=== PATIENT | male | born 1990 | race Two or more races ===

== ENCOUNTER 2023-02-08 10:36 | Inpatient (IN) | payer MEDICAID, SELFPAY ==
--- NOTE | 2023-02-08 10:55 | ED_ITS ---
HPI - General Adult General Chief complaint: Psychiatric Symptoms Stated complaint: SEC 12, HI, SI per EMS Time Seen by Provider: 02/08/23 10:55 Source: patient and EMS Mode of arrival: EMS Limitations: no limitations History of Present Illness HPI narrative: Patient is a 33 year old assigned male at with no reported medical history presenting to the emergency department today with suicidal ideation. Patient states that he has been feeling suicidal lately and when next to the [facility], he was really contemplating it. Patient denies any dizziness, lightheadedness, abdominal pain, nausea, vomiting, fever, chills, blurry vision, double vision, loss of vision, chest pain, difficulty breathing, shortness of breath, back pain, night sweats, pain with urination, increased urinary frequency, increased urinary urgency, blood in his urine or stool, syncope or a near syncopal episode, recent trauma or falls, bowel incontinence, bladder incontinence, bowel retention, bladder retention, or any other complaints at this time. Onset (ago): day(s) Relieving factors: none Exacerbating factors: none Associated symptoms: denies other symptoms Treatments prior to arrival: none Related Data Allergies Allergy/AdvReac Type Severity Reaction Status Date / Time seafood Allergy Hives Verified 02/08/23 12:13 Review of Systems Constitutional: Constitutional: Reports no additional constitutional complaints, Denies chills, Denies fever(s) and Denies night sweats Eyes: Eyes: Reports no additional eye complaints, Denies blurry vision, Denies change in vision, Denies diplopia, Denies eye discharge, Denies loss of vision and Denies eye pain ENT: Denies dizziness Cardiovascular: Cardiovascular: Reports no additional cardiovascular complaints, Denies chest pain, Denies lightheadedness, Denies Loss of Consciousness and Denies dyspnea Respiratory: Respiratory: Reports no additional respiratory complaints and Denies dyspnea Gastrointestinal: Gastrointestinal: Reports no additional gastrointestinal complaints, Denies abdominal pain, Denies melena, Denies hematochezia, Denies ch sonam in bowel habits and Denies change in stool character Genitourinary: Genitourinary: Reports no additional male genitourinary complaints, Denies hematuria, Denies oliguria, Denies difficulty urinating, Denies dysuria, Denies urinary frequency, Denies urinary hesitancy, Denies urinary incontinence and Denies urinary urgency Musculoskeletal: Musculoskeletal: Reports no additional musculoskeletal complaints, Denies numbness and Denies tingling Neurologic: Denies dizziness, Denies loss of vision, Denies numbness and Denies tingling Psychiatric: Psychiatric: Reports no additional psychiatric complaints and Reports suicidal ideation Endocrine: Endocrine: Reports no additional endocrine complaints Hematologic/Lymphatic: Hematologic/Lymphatic: Reports no additional hematologic/lymphatic complaints Allergic/Immunologic: Allergic/Immunologic: Reports no additional allergic/immunologic complaints [facility] Past Medical History Attestation statement: The following information was validated with the patient. Source: old records reviewed and nursing notes reviewed Social History Social History Advance Directives: No Physical Exam ED Vital Signs: Vital Signs - 24 hr 02/08/23 11:27 Temperature 98.6 F Pulse Rate 60 Respiratory Rate 16 Blood Pressure 123/67 Pulse Oximetry 97 Oxygen Delivery Method Room Air BMI result Body Mass Index 19.9 Const General: cooperative, no acute distress, alert and awake Nutritional Appearance: well nourished Orientation/consciousness: patient oriented x3 Limitations: no limitations HENMT Head: Yes normal to inspection and Yes atraumatic Ears: hearing grossly normal bilaterally and external ears normal General nose exam: Normal external nose present, no nasal discharge noted and no epistaxis Face and sinus: Yes normal facial exam, No abrasion and No laceration Mouth: Normal oral and palatal mucosa present, no drooling and no muffled voice Eyes General: appearance normal, both eyes and all related structures Periorbital: periorbital findings normal Eyelids: Yes eyelids normal Conjunctivae: conjunctivae normal Pupils: Equal, round and reactive pupils present EOM: EOMs intact bilaterally Neck Neck: Yes normal visual inspection, Yes full ROM and Yes no lymphadenopathy Chest Chest palpation & inspection: normal inspection of the chest Resp Effort & Inspection: normal respiratory effort and able to speak in complete sentences GI Inspection: Yes normal to inspection Neuro General: patient oriented x3 and moves all extremities Cranial nerves: Yes Equal, round and reactive pupils present Cognition (Neuro): normal cognition Motor exam (neuro): 5/5 motor strength present throughout Sensory Exam: Normal double simultaneous stimulation for sensation Coordination: [id number] test normal Extrem General: Yes normal to inspection, Yes full ROM and Yes capillary refill normal Psych Appearance: grossly normal Mental Status: mental status grossly normal Affect: normal affect Attitude: cooperative Thought process: Normal thought process present Thought content: Suicidality present Medications Administered Discontinued Medications Generic Name Dose Route Start Last Admin Trade Name Nancy PRN Reason Stop Dose Admin Ibuprofen 600 mg 02/08/23 11:30 02/08/23 12:16 Ibuprofen 600 Mg Tablet PO 02/08/23 11:31 600 mg ONCE STA Administration Medical Decision Making Medical Decision Making [facility] Narrative: Patient is a 33 year old assigned male at with no reported medical history presenting to the emergency department today with suicidal ideation. Patient's physical exam was unremarkable. Patient's blood work was unremarkable. I explained my physical exam findings as well as all test results to the patient. I answered all questions asked by the patient. Patient is a bed search from the community. Lab Data [facility] Lab Attestation statement: I reviewed the patient's lab results. 02/08/23 11:44 02/08/23 11:44 Labs: Lab Results 02/08/23 02/08/23 02/08/23 Range/Units 11:44 11:44 11:44 WBC 11.1 H (4.8-10.8) X10*3/uL RBC 4.30 L (4.60-5.80) X10*6/uL Hgb 13.8 L (14.0-18.0) g/dl Hct 40.2 L (42.0-52.0) % MCV 93.5 (80.0-98.0) fL MCH 32.1 (27.0-33.0) pg MCHC 34.3 (31.0-36.0) g/dl RDW 14.0 (11.0-16.0) % Plt Count 232 (160-400) X10*3/uL MPV 10.9 (9.4-12.4) fL Immature Gran % (Auto) 0.2 (0.0-0.4) % Neut % (Auto) 80.4 H (45-73) % Lymph % (Auto) 14.0 L (20-40) % [place] % (Auto) 4.8 (2-11) % Eos % (Auto) 0.1 (0-4) % Baso % (Auto) 0.5 (0-2) % Lymph # (Auto) 1.6 (1.2-4.9) X10*3/uL [place] # (Auto) 0.5 (0.1-1.2) X10*3/uL Eos # (Auto) 0.0 (0.0-0.4) X10*3/uL Baso # (Auto) 0.1 (0.0-0.2) X10*3/uL Abs Immat Gran (auto) 0.02 (0.00-0.03) X10*3/uL Absolute Neuts (auto) 8.9 H (2.0-8.3) x10*3/uL Absolute Nucleated RBC 0.000 (0.0-0.012) X10*3/uL Nucleated RBC % (auto) 0.0 (0.0-0.2) /100WBC Sodium 142 (135-145) mmol/L Potassium 3.9 (3.3-5.1) mmol/L Chloride 106 (96-108) mmol/L Carbon Dioxide 28 (22-29) mmol/L Anion Gap 12 (12-20) BUN 10 (9-16) mg/dL Creatinine 0.83 (0.5-1.4) mg/dL Estim Creat Clear Calc 108.6 Estimated GFR > 60 Random Glucose 101 (60-115) mg/dL Calcium 9.5 (8.4-10.2) mg/dL Total Bilirubin 0.9 (0.0-1.0) mg/dL AST 24 (5-37) U/L ALT 18 (0-40) U/L Alkaline Phosphatase 70 (39-117) U/L Total Protein 7.1 (6.5-8.0) g/dL Albumin 4.7 (3.5-5.0) g/dL Urine Color Dark Yellow Urine Appearance Clear Urine pH 5.5 (5.0-9.0) Ur Specific [place] 1.025 (1.005-1.025) Urine Protein 30 (1+) H (Neg-Trace) mg/dL Urine Glucose (UA) Negative (Negative) mg/dL Urine Ketones 40 (Negative) mg/dL Urine Blood Negative (Negative) Urine Nitrite Negative (Negative) Ur Leukocyte Esterase Negative (Negative) Urine RBC 0-2 (0-2) /HPF Urine WBC 0-5 (0-5) /HPF Ur Squamous Epith Cells 0-2 (0-2) /HPF Urine Bacteria None Seen (None Seen) Hyaline Casts 0-2 (0-2) /LPF Salicylates < 5.0 L (15-30) mg/dL Urine Opiates Screen (Not Detect) Urine Fentanyl Screen (Not Detect) Acetaminophen < 17 (<30) mcg/mL Ur Barbiturates Screen (Not Detect) Ur Phencyclidine Scrn (Not Detect) Ur Amphetamines Screen (Not Detect) U Benzodiazepines Scrn (Not Detect) Urine Cocaine Screen (Not Detect) U Marijuana (THC) Screen (Not Detect) Ethyl Alcohol < 10 mg/dL 02/08/23 Range/Units 11:44 WBC (4.8-10.8) X10*3/uL RBC (4.60-5.80) X10*6/uL Hgb (14.0-18.0) g/dl Hct (42.0-52.0) % MCV (80.0-98.0) fL MCH (27.0-33.0) pg MCHC (31.0-36.0) g/dl RDW (11.0-16.0) % Plt Count (160-400) X10*3/uL MPV (9.4-12.4) fL Immature Gran % (Auto) (0.0-0.4) % Neut % (Auto) (45-73) % Lymph % (Auto) (20-40) % [place] % (Auto) (2-11) % Eos % (Auto) (0-4) % Baso % (Auto) (0-2) % Lymph # (Auto) (1.2-4.9) X10*3/uL [place] # (Auto) (0.1-1.2) X10*3/uL Eos # (Auto) (0.0-0.4) X10*3/uL Baso # (Auto) (0.0-0.2) X10*3/uL Abs Immat Gran (auto) (0.00-0.03) X10*3/uL Absolute Neuts (auto) (2.0-8.3) x10*3/uL Absolute Nucleated RBC (0.0-0.012) X10*3/uL Nucleated RBC % (auto) (0.0-0.2) /100WBC Sodium (135-145) mmol/L Potassium (3.3-5.1) mmol/L Chloride (96-108) mmol/L Carbon Dioxide (22-29) mmol/L Anion Gap (12-20) BUN (9-16) mg/dL Creatinine (0.5-1.4) mg/dL Estim Creat Clear Calc Estimated GFR Random Glucose (60-115) mg/dL Calcium (8.4-10.2) mg/dL Total Bilirubin (0.0-1.0) mg/dL AST (5-37) U/L ALT (0-40) U/L Alkaline Phosphatase (39-117) U/L Total Protein (6.5-8.0) g/dL Albumin (3.5-5.0) g/dL Urine Color Urine Appearance Urine pH (5.0-9.0) Ur Specific [place] (1.005-1.025) Urine Protein (Neg-Trace) mg/dL Urine Glucose (UA) (Negative) mg/dL Urine Ketones (Negative) mg/dL Urine Blood (Negative) Urine Nitrite (Negative) Ur Leukocyte Esterase (Negative) Urine RBC (0-2) /HPF Urine WBC (0-5) /HPF Ur Squamous Epith Cells (0-2) /HPF Urine Bacteria (None Seen) Hyaline Casts (0-2) /LPF Salicylates (15-30) mg/dL Urine Opiates Screen Not Detected (Not Detect) Urine Fentanyl Screen Not Detected (Not Detect) Acetaminophen (<30) mcg/mL Ur Barbiturates Screen Not Detected (Not Detect) Ur Phencyclidine Scrn Not Detected (Not Detect) Ur Amphetamines Screen Not Detected (Not Detect) U Benzodiazepines Scrn Not Detected (Not Detect) Urine Cocaine Screen POSITIVE H (Not Detect) U Marijuana (THC) Screen POSITIVE H (Not Detect) Ethyl Alcohol mg/dL Independent Historian Clinical information obtained from an independent historian. History obtained from or confirmed by: EMS Discharge Plan Discharge Clinical Impression: Suicidal ideation Patient Disposition: Still a Patient
--- NOTE | 2023-02-08 11:12 | MHC.CARE ---
Patient evaluated in the community by [facility] Crisis and is awaiting inpatient psychiatric placement.
[2023-02-08 11:27] VITALS: BP 123/67; BP 140/76; PULSE 60; PULSE 70; RESP 16; TEMP 37; O2SAT 100; O2SAT 97; BMI 19.9
[2023-02-08 11:52] LABS: MANUAL DIFF FLAG NO
[2023-02-08 11:55] LABS: Basophils Absolute Auto 0.1 X10*3/uL (0.0-0.2); Basophils Percent Auto 0.5 % (0-2); Eosinophils Percent Auto 0.1 % (0-4); Hematocrit 40.2 % (42.0-52.0); Hemoglobin 13.8 g/dl (14.0-18.0); Imm Gran Abs Auto 0.02 X10*3/uL (0.00-0.03); Imm Gran Pct Auto 0.2 % (0.0-0.4); Lymphocytes Absolute Auto 1.6 X10*3/uL (1.2-4.9); Mean Corpuscular HGB Conc 34.3 g/dl (31.0-36.0); Mean Corpuscular Hemoglobin 32.1 pg (27.0-33.0); Mean Corpuscular Volume 93.5 fL (80.0-98.0); Mean Platelet Volume 10.9 fL (9.4-12.4); Monocytes Absolute Auto 0.5 X10*3/uL (0.1-1.2); Monocytes Percent Auto 4.8 % (2-11); Neutrophils Absolute Auto 8.9 x10*3/uL (2.0-8.3); Neutrophils Percent Auto 80.4 % (45-73); Platelet Count 232 X10*3/uL (160-400); White Blood Count 11.1 X10*3/uL (4.8-10.8)
[2023-02-08 11:59] LABS: Appearance Urine Clear; Color Urine Dark Yellow; Glucose Urine UA Negative (Negative); Leukocyte Esterase Urine Negative (Negative); Nitrite Urine Negative (Negative); PH 5.5 (5.0-9.0); Specific Gravity - Urine 1.025 (1.005-1.025); UMIC TRIGGER UA YES; Urine Blood Negative (Negative); Urine Ketones 40 mg/dL (Negative); Urine Protein 30 (1+) mg/dL (Neg-Trace)
[2023-02-08 12:06] LABS: Bacteria Urine None Seen (None Seen); Hyaline Casts Urine 0-2 /LPF (0-2); RBC Urine 0-2 /HPF (0-2); Squamous Epithelial Cell Urine 0-2 /HPF (0-2); WBC Urine 0-5 /HPF (0-5)
[2023-02-08 12:08] LABS: Amphetamine Screen Urine Not Detected (Not Detect); Barbiturates, Urine Not Detected (Not Detect); Benzodiazepines Screen Urine Not Detected (Not Detect); Cannabinoid Screen Urine POSITIVE (Not Detect); Cocaine Screen Urine POSITIVE (Not Detect); Fentanyl, urine Not Detected (Not Detect); Opiate Screen Urine Not Detected (Not Detect); Phencyclidine Screen Urine Not Detected (Not Detect)
[2023-02-08 12:15] LABS: Acetaminophen LAB < 17 mcg/mL (<30); Alanine Aminotransferase 18 U/L (0-40); Albumin Level 4.7 g/dL (3.5-5.0); Alkaline Phosphatase 70 U/L (39-117); Anion Gap 12 (12-20); Aspartate Amino Transferase 24 U/L (5-37); Bilirubin Total 0.9 mg/dL (0.0-1.0); Blood Urea Nitrogen 10 mg/dL (9-16); Calcium 9.5 mg/dL (8.4-10.2); Carbon Dioxide 28 mmol/L (22-29); Chloride 106 mmol/L (96-108); Creatinine Clr Calc Pharmacy 108.6; Estimated Glomerular Filt Rate > 60; Ethanol < 10 mg/dL; Glucose Random 101 mg/dL (60-115); Potassium 3.9 mmol/L (3.3-5.1); Salicylate < 5.0 mg/dL (15-30); Sodium 142 mmol/L (135-145); Total Protein 7.1 g/dL (6.5-8.0)
[2023-02-08] MEDS: Ibuprofen 600 MG TABLET PO (12:16)
--- NOTE | 2023-02-08 12:56 | ECG_ITS ---
Test Reason : CHECK QT Blood Pressure : / mmHG Vent. Rate : 063 BPM Atrial Rate : 063 BPM P-R Int : 128 ms QRS Dur : 096 ms QT Int : 404 ms P-R-T Axes : 080 069 049 degrees QTc Int : 413 ms Normal sinus rhythm Normal ECG No previous ECGs available Referred By: Star Ramirez Electronically Signed By:TEMITOPE CABRERA MD
--- NOTE | 2023-02-08 14:21 | PC.NURSE ---
Pt calm, showered, ate lunch, up ad kylie. Communicates well with staff and peers. Has pervasive negative thoughts. Has recently lost Mother and family members in the last couple of months. Denies SI/HI at this time. Feels safe in this environment. Reports cocaine and ETOH use recently, consistently with no s/s of withdrawals.
[2023-02-08 19:45] LABS: COVID-19 Test Negative (Negative); IDNOW Serial# 08D9AD1C
[2023-02-08 20:26] VITALS: BP 103/72; PULSE 80; RESP 16; TEMP 36.7; O2SAT 99
[2023-02-09 03:15] VITALS: BP 110/74; PULSE 74; RESP 16; TEMP 36.8; O2SAT 98
--- NOTE | 2023-02-09 06:31 | PC.NURSE ---
Patient slept through the night, no distress observed/reported, med rec completed/patient is currently not on any home medication, disposition per [facility] is section 12 inpatient bed search, VSS, no behavior concern, will continue to monitor.
--- NOTE | 2023-02-09 07:38 | PC.NURSE ---
Breakfest tray provided, pt continues to appear to be sleeping. Resp reg and even, NAD. In patient bedsearch continues. Awaiting to hear from CARE team for any changes in dispo.
[2023-02-09 09:46] VITALS: BP 114/79; PULSE 92; RESP 16; TEMP 36.5; O2SAT 97
[2023-02-09] MEDS: Ibuprofen 600 MG TABLET PO (13:22)
[2023-02-09] MEDS: Acetaminophen 325 MG TABLET 650 MG PO ×2 (15:09→20:36)
--- NOTE | 2023-02-09 15:15 | PC.NURSE ---
medicated for dental pain.
[2023-02-09 17:57] VITALS: BP 124/71; PULSE 67; RESP 17; TEMP 36.7; O2SAT 97
--- NOTE | 2023-02-09 18:22 | PC.ADMIT ---
Anthony was admitted to [facility] at 16:30 from Pod on a CV for treatment of SI/HI/AH/Depression.? Precipitants of admission include self presenting [facility] outpatient tx center and reported that he was wanting to hurt others and himself, ?I have so much anger in me that it?s driving me crazy?. He is alert and oriented x4. Mood is depressed with a variable affect. He reports command AH telling him to harm others. ?The voices will just tell me things to do to people around me. The plan is never the same. It is what it is at that moment. ANd the thoughts are so intrusive most of the time?. Reports that the thoughts of harming others are there very frequently. Reported he is able to seek staff out if these thoughts occur. Denies VH at this time. Reports SI with plan to jump off bridge. Reported to have walked to the bridge and thought about jumping but stopped because ?my daughter needs me more than I need myself?. Patient stated that ?my depression is so bad I have no energy except to drink and pass out then start over?. Pt endorsed anxiety and believes he has ADHD. ?I think I have ADHD. My mind never stops. Whether it is emotional, intrusive thoughts and I can not focus?. Thought Process linear and clear. Appetite has been poor ?I Haven?t had?. Sleep is poor. ?I Only sleep when I'm fully intoxicated and drunk?. PATTERSON is positive for cocaine. Coke is used 2 to 3 times a week. Last use 02/08 @0100. Reported to drink ?a Gallon of ronel a day for a very long time?? last drink on 02/08/2023 @ 0100. Patient denies any seizure hx. Started on CIWA q4 hours with PRN ativan based on CIWA score. Reported tooth ache on the left lower side rates it a 7/10 in pain. HX of asthma. 15 minute safety checks initiated.
[2023-02-09] MEDS: Thiamine HCL 100 MG TABLET PO (18:26)
[2023-02-09] MEDS: LORazepam 1 MG TABLET PO (18:26)
[2023-02-09 21:30] VITALS: BP 127/76; PULSE 76; RESP 18; TEMP 36.4; O2SAT 97
[2023-02-09] MEDS: traZODone HCL 50 MG TABLET PO (21:43)
[2023-02-09] MEDS: Benzocaine 20 % Oral Gel 9 GM TUBE 1 APPL MUCOUS MEM (21:43)
[2023-02-10] MEDS: hydrOXYzine HCL 25 MG TABLET PO (00:18)
[2023-02-10 08:00] VITALS: BP 108/58; PULSE 61; TEMP 36.6; O2SAT 99
[2023-02-10] MEDS: Thiamine HCL 100 MG TABLET PO (08:24)
[2023-02-10] MEDS: Ibuprofen 600 MG TABLET PO ×3 (08:27→20:18)
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
[2023-02-10 09:16] LABS: Alanine Aminotransferase 15 U/L (0-40); Albumin Level 4.2 g/dL (3.5-5.0); Alkaline Phosphatase 67 U/L (39-117); Anion Gap 12 (12-20); Aspartate Amino Transferase 15 U/L (5-37); Bilirubin Total 1.1 mg/dL (0.0-1.0); Blood Urea Nitrogen 13 mg/dL (9-16); Calcium 9.5 mg/dL (8.4-10.2); Carbon Dioxide 28 mmol/L (22-29); Chloride 105 mmol/L (96-108); Cholesterol 219 mg/dL; Estimated Glomerular Filt Rate > 60; Glucose Fasting 98 mg/dL (60-99); HDL Cholesterol 46 mg/dL; LDL Cholesterol Calculated 146 mg/dl; Potassium 4.4 mmol/L (3.3-5.1); Sodium 141 mmol/L (135-145); Total Protein 6.5 g/dL (6.5-8.0); Triglycerides 139 mg/dL
[2023-02-10] MEDS: HaloperidoL 1 MG TABLET 2 MG PO ×2 (13:29→20:19)
[2023-02-10 20:10] VITALS: BP 132/78; PULSE 16; RESP 16; TEMP 36.6; O2SAT 98
[2023-02-10] MEDS: traZODone HCL 100 MG TABLET PO (20:18)
[2023-02-10] MEDS: Acetaminophen 325 MG TABLET 650 MG PO (20:18)
[2023-02-10] MEDS: Benzocaine 20 % Oral Gel 9 GM TUBE 1 APPL MUCOUS MEM (20:19)
[2023-02-10] MEDS: Prazosin HCL 1 MG CAPSULE PO (20:19)
--- NOTE | 2023-02-11 01:00 | PC.NURSE ---
CIWA-ordered to perform when awake. patient is asleep. respirations even and unlabored. no signs of distress.
[2023-02-11] MEDS: Acetaminophen 325 MG TABLET 650 MG PO ×2 (02:55→12:59)
[2023-02-11] MEDS: traZODone HCL 100 MG TABLET PO ×2 (02:55→20:22)
[2023-02-11 08:00] VITALS: BP 111/60; PULSE 64; RESP 18; TEMP 36.6; O2SAT 96
[2023-02-11] MEDS: Thiamine HCL 100 MG TABLET PO (08:40)
[2023-02-11] MEDS: Ibuprofen 600 MG TABLET PO ×3 (08:40→20:22)
[2023-02-11] MEDS: HaloperidoL 1 MG TABLET 2 MG PO ×2 (12:59→20:21)
[2023-02-11] MEDS: Nicotine Polacrilex 2 MG GUM 4 MG BUCCAL (14:15)
--- NOTE | 2023-02-11 16:31 | HO.PSYCHPN ---
Subjective Subjective Date of Service: 02/11/23 Reason For Visit: SI Subjective Notes: Conditional Voluntary Medical Problems Affecting Mental Status: No Interim History: met with patient. Discussed with Nursing. Admitted with hallucinations suicidal ideation homicidal ideation. Today reports overall feeling much improved. Thankful for the care he has been receiving so far. Happy with medications. Reported now focusing on his own well-being and being present for his 15-year-old daughter. Reports this is the 1st time he has sought treatment and open to substance rehab programming with a view to residential programming thereafter. Otherwise mood good. Sleep energy and appetite okay. No medication concerns Side effects from medications: No Attending Groups: Yes Review of Systems Acute medical concerns: No Review of Systems Review of Systems Yes all other systems are reviewed and are negative Mental Status Exam Mental Status Exam Narrative: pleasant. Engaged. Organized. Good hygiene. Euthymic. No SI. No HI. No agitation. No psychosis. Insight and judgment good Diagnostics Vital Signs (24Hr): Vital Signs - 24 hr 02/10/23 20:10 02/11/23 08:00 Temperature 97.8 F 97.8 F Pulse Rate 16 L 64 Respiratory Rate 16 18 Blood Pressure 132/78 111/60 Pulse Oximetry 98 96 Oxygen Delivery Method Room Air Room Air BMI result Body Mass Index 19.9 Labs 02/08/23 11:44 02/10/23 08:25 Labs: Laboratory Results - last 48 hr 02/10/23 08:25 Sodium 141 Potassium 4.4 Chloride 105 Carbon Dioxide 28 Anion Gap 12 BUN 13 Creatinine 0.91 Estim Creat Clear Calc 99.0 Estimated GFR > 60 Fasting Glucose 98 Calcium 9.5 Total Bilirubin 1.1 H AST 15 ALT 15 Alkaline Phosphatase 67 Total Protein 6.5 Albumin 4.2 Triglycerides 139 Cholesterol 219 LDL Cholesterol, Calc 146 HDL Cholesterol 46 Medications Medications Current Medications Acetaminophen (Acetaminophen 325 Mg Tablet) 650 mg PO Q6H PRN PRN Reason: Headache/Pain Mild Scale (1-3) Last Admin: 02/11/23 12:59 Dose: 650 mg Al Hydroxide/Mg Hydroxide (Magnesium Hydrox/Alum Hydrox 30 Ml Oral.Susp) 30 ml PO Q6H PRN PRN Reason: Heartburn/Nausea Benzocaine (Benzocaine 20 % Oral Gel 9 Gm Tube) 1 appl MUCOUS MEM QID PRN; Protocol PRN Reason: toothache Last Admin: 02/10/23 20:19 Dose: 1 appl Haloperidol (Haloperidol 1 Mg Tablet) 2 mg PO Q4H PRN PRN Reason: agitation Last Admin: 02/11/23 12:59 Dose: 2 mg Hydroxyzine HCl (Hydroxyzine Hcl 25 Mg Tablet) 25 mg PO Q6H PRN PRN Reason: Anxiety Last Admin: 02/10/23 00:18 Dose: 25 mg Ibuprofen (Ibuprofen 600 Mg Tablet) 600 mg PO TID DENIA Last Admin: 02/11/23 14:30 Dose: 600 mg Lorazepam (Lorazepam 1 Mg Tablet) 1 mg PO Q4H PRN PRN Reason: Alcohol Withdrawal Lorazepam (Lorazepam 1 Mg Tablet) 2 mg PO Q4H PRN PRN Reason: Alcohol Withdrawal Magnesium Hydroxide (Milk Of Magnesia 30 Ml Oral.Susp) 30 ml PO DAILY PRN PRN Reason: Constipation Nicotine (Nicotine 21 Mg Patch.Td24) 21 mg TRANSDERMA DAILY DENIA Nicotine Polacrilex (Nicotine Polacrilex 2 Mg Gum) 4 mg BUCCAL Q2H PRN PRN Reason: nicotine cravings Last Admin: 02/11/23 14:15 Dose: 4 mg Nicotine Polacrilex (Nicotine Polacrilex 2 Mg Gum) 2 mg BUCCAL Q2H PRN PRN Reason: Nicotine Cravings Prazosin HCl (Prazosin Hcl 1 Mg Capsule) 2 mg PO BEDTIME DENIA; Protocol Stop: 02/11/23 21:01 Prazosin HCl (Prazosin Hcl 1 Mg Capsule) 3 mg PO BEDTIME DENIA; Protocol Thiamine HCl (Thiamine Hcl 100 Mg Tablet) 100 mg PO DAILY DENIA Last Admin: 02/11/23 08:40 Dose: 100 mg Trazodone HCl (Trazodone Hcl 100 Mg Tablet) 100 mg PO BEDTIME MRX1 DENIA Last Admin: 02/11/23 05:04 Dose: Not Given Allergies Allergies Allergy/AdvReac Type Severity Reaction Status Date / Time seafood Allergy Hives Verified 02/08/23 12:13 Assessment & Plan Assessment & Plan (1) Chronic post-traumatic stress disorder (PTSD): Status: Acute Code(s): F43.12 - Post-traumatic stress disorder, chronic (2) Major depressive disorder: Status: Acute Code(s): F32.9 - Major depressive disorder, single episode, unspecified Plan 02/10: start prazosin titration for nightmares and insomnia in PTSD. start haldol 2 mg Q4H PRN agitation/anger. titrate up as indicated. T/C SSRI, T/C naltrexone. 02/11/2023: No changes to current plan. Open to inpatient substance programming with a view to residential treatment programming there after Reason for contiued inpatient stay Substantial Risk for: harm to self Time Spent With Patient Time: Total time managing care of this patient today ____ minutes.
[2023-02-11] MEDS: Prazosin HCL 1 MG CAPSULE 2 MG PO (20:21)
[2023-02-11 20:25] VITALS: BP 107/71; PULSE 86; TEMP 36.6; O2SAT 97
[2023-02-12] MEDS: traZODone HCL 100 MG TABLET PO ×3 (02:00→22:00)
[2023-02-12] MEDS: Ibuprofen 600 MG TABLET PO ×3 (10:22→20:52)
[2023-02-12] MEDS: Thiamine HCL 100 MG TABLET PO (10:23)
[2023-02-12 12:30] VITALS: BP 119/75; PULSE 60; RESP 18; TEMP 36.6; O2SAT 100
[2023-02-12] MEDS: Nicotine 21 MG PATCH.TD24 TRANSDERMA (12:54)
[2023-02-12] MEDS: Acetaminophen 325 MG TABLET 650 MG PO (13:07)
[2023-02-12] MEDS: HaloperidoL 1 MG TABLET 2 MG PO ×2 (13:08→20:52)
--- NOTE | 2023-02-12 14:15 | HO.PSYCHPN ---
Subjective Subjective Date of Service: 02/12/23 Reason For Visit: SI Subjective Notes: Emery Warning and 3 Day Interim History: Continues to report overall things feeling things are much better. Adamantly denies depression, SI, HI, psychosis. Reports admitting three-day notice with a view to pursuing sober living environment and has a list of resources provided by the unit. Continues to feel thankful for the care he has received. Remains focused on his own well-being and being present for his 15-year-old daughter. Otherwise sleep energy and appetite good. No medication concerns. Medication Compliance: Yes Side effects from medications: No Attending Groups: Yes Review of Systems Acute medical concerns: No Review of Systems Review of Systems Yes all other systems are reviewed and are negative Mental Status Exam Mental Status Exam Narrative: pleasant. Engaged. Organized. Good hygiene. Euthymic. No SI. No HI. No agitation. No psychosis. Insight and judgment good Diagnostics Vital Signs (24Hr): Vital Signs - 24 hr 02/11/23 20:25 Temperature 97.8 F Pulse Rate 86 Blood Pressure 107/71 Pulse Oximetry 97 Oxygen Delivery Method Room Air BMI result Body Mass Index 19.9 Labs 02/08/23 11:44 02/10/23 08:25 Medications Medications Current Medications Acetaminophen (Acetaminophen 325 Mg Tablet) 650 mg PO Q6H PRN PRN Reason: Headache/Pain Mild Scale (1-3) Last Admin: 02/12/23 13:07 Dose: 650 mg Al Hydroxide/Mg Hydroxide (Magnesium Hydrox/Alum Hydrox 30 Ml Oral.Susp) 30 ml PO Q6H PRN PRN Reason: Heartburn/Nausea Benzocaine (Benzocaine 20 % Oral Gel 9 Gm Tube) 1 appl MUCOUS MEM QID PRN; Protocol PRN Reason: toothache Last Admin: 02/10/23 20:19 Dose: 1 appl Haloperidol (Haloperidol 1 Mg Tablet) 2 mg PO Q4H PRN PRN Reason: agitation Last Admin: 02/12/23 13:08 Dose: 2 mg Hydroxyzine HCl (Hydroxyzine Hcl 25 Mg Tablet) 25 mg PO Q6H PRN PRN Reason: Anxiety Last Admin: 02/10/23 00:18 Dose: 25 mg Ibuprofen (Ibuprofen 600 Mg Tablet) 600 mg PO TID DENIA Last Admin: 02/12/23 10:22 Dose: 600 mg Lorazepam (Lorazepam 1 Mg Tablet) 1 mg PO Q4H PRN PRN Reason: Alcohol Withdrawal Lorazepam (Lorazepam 1 Mg Tablet) 2 mg PO Q4H PRN PRN Reason: Alcohol Withdrawal Magnesium Hydroxide (Milk Of Magnesia 30 Ml Oral.Susp) 30 ml PO DAILY PRN PRN Reason: Constipation Nicotine (Nicotine 21 Mg Patch.Td24) 21 mg TRANSDERMA DAILY DENIA Last Admin: 02/12/23 12:54 Dose: 21 mg Nicotine Polacrilex (Nicotine Polacrilex 2 Mg Gum) 4 mg BUCCAL Q2H PRN PRN Reason: nicotine cravings Last Admin: 02/11/23 14:15 Dose: 4 mg Nicotine Polacrilex (Nicotine Polacrilex 2 Mg Gum) 2 mg BUCCAL Q2H PRN PRN Reason: Nicotine Cravings Prazosin HCl (Prazosin Hcl 1 Mg Capsule) 3 mg PO BEDTIME DENIA; Protocol Thiamine HCl (Thiamine Hcl 100 Mg Tablet) 100 mg PO DAILY DENIA Last Admin: 02/12/23 10:23 Dose: 100 mg Trazodone HCl (Trazodone Hcl 100 Mg Tablet) 100 mg PO BEDTIME MRX1 DENIA Last Admin: 02/12/23 02:00 Dose: 100 mg Allergies Allergies Allergy/AdvReac Type Severity Reaction Status Date / Time seafood Allergy Hives Verified 02/08/23 12:13 Assessment & Plan Assessment & Plan (1) Chronic post-traumatic stress disorder (PTSD): Status: Acute Code(s): F43.12 - Post-traumatic stress disorder, chronic (2) Major depressive disorder: Status: Acute Code(s): F32.9 - Major depressive disorder, single episode, unspecified Plan 02/10: start prazosin titration for nightmares and insomnia in PTSD. start haldol 2 mg Q4H PRN agitation/anger. titrate up as indicated. T/C SSRI, T/C naltrexone. 02/11/2023: No changes to current plan. Open to inpatient substance programming with a view to residential treatment programming there after 02/12/2023: Three-day notice Reason for contiued inpatient stay Substantial Risk for: harm to self Time Spent With Patient Time: Total time managing care of this patient today ____ minutes.
[2023-02-12] MEDS: hydrOXYzine HCL 25 MG TABLET PO (16:41)
[2023-02-12] MEDS: Benzocaine 20 % Oral Gel 9 GM TUBE 1 APPL MUCOUS MEM (16:41)
[2023-02-12 20:50] VITALS: BP 118/70; PULSE 70; RESP 18; TEMP 36.2; O2SAT 100
[2023-02-12] MEDS: Prazosin HCL 1 MG CAPSULE 3 MG PO (20:51)
[2023-02-13 08:30] VITALS: BP 121/62; PULSE 70; RESP 16; TEMP 36.6; O2SAT 100
[2023-02-13] MEDS: Ibuprofen 600 MG TABLET PO ×3 (08:43→21:55)
[2023-02-13] MEDS: Thiamine HCL 100 MG TABLET PO (08:43)
[2023-02-13] MEDS: Sertraline HCL 50 MG TABLET PO (14:53)
--- NOTE | 2023-02-13 15:00 | P.PNPSI_ITS ---
Subjective Subjective Date of Service: 02/13/23 Reason For Visit: SI Interim History: calm, cooperative. positive. states he doesn't want to hurt others, he wants to help himself and help others. feels this experience has led to a profound change in perspective. wants to stay way from drugs. denies intrusive thoughts of harming others. states sleeping better, but not well. had a nightmare last night. agrees to increase prazosin to 4 mg at HS. agreeable to start zoloft for depression and anxiety. asks to scheduled trazodone at HS to be 200 mg and to add seroquel 50, which is done. awaiting [facility] admission. per staff, social. meds and meals. eating and sleeping. wants aftercare outside [facility]. 3-day up wed. Mental Status Exam Mental Status Exam Narrative: pleasant. Engaged. Organized. Good hygiene. Euthymic. No SI. No HI. No agitation. No psychosis. Insight and judgment good Diagnostics Vital Signs (24Hr): Vital Signs - 24 hr 02/12/23 20:50 02/13/23 08:30 Temperature 97.2 F 97.8 F Pulse Rate 70 70 Respiratory Rate 18 16 Blood Pressure 118/70 121/62 Pulse Oximetry 100 100 Oxygen Delivery Method Room Air Room Air BMI result Body Mass Index 19.9 Labs 02/08/23 11:44 02/10/23 08:25 Medications Medications Current Medications Acetaminophen (Acetaminophen 325 Mg Tablet) 650 mg PO Q6H PRN PRN Reason: Headache/Pain Mild Scale (1-3) Last Admin: 02/12/23 13:07 Dose: 650 mg Al Hydroxide/Mg Hydroxide (Magnesium Hydrox/Alum Hydrox 30 Ml Oral.Susp) 30 ml PO Q6H PRN PRN Reason: Heartburn/Nausea Benzocaine (Benzocaine 20 % Oral Gel 9 Gm Tube) 1 appl MUCOUS MEM QID PRN; Protocol PRN Reason: toothache Last Admin: 02/12/23 16:41 Dose: 1 appl Haloperidol (Haloperidol 1 Mg Tablet) 2 mg PO Q4H PRN PRN Reason: agitation Last Admin: 02/12/23 20:52 Dose: 2 mg Hydroxyzine HCl (Hydroxyzine Hcl 25 Mg Tablet) 25 mg PO Q6H PRN PRN Reason: Anxiety Last Admin: 02/12/23 16:41 Dose: 25 mg Ibuprofen (Ibuprofen 600 Mg Tablet) 600 mg PO TID [facility] Last Admin: 02/13/23 14:31 Dose: 600 mg Lorazepam (Lorazepam 1 Mg Tablet) 1 mg PO Q4H PRN PRN Reason: Alcohol Withdrawal Lorazepam (Lorazepam 1 Mg Tablet) 2 mg PO Q4H PRN PRN Reason: Alcohol Withdrawal Magnesium Hydroxide (Milk Of Magnesia 30 Ml Oral.Susp) 30 ml PO DAILY PRN PRN Reason: Constipation Nicotine (Nicotine 21 Mg Patch.Td24) 21 mg TRANSDERMA DAILY [facility] Last Admin: 02/13/23 08:44 Dose: Not Given Nicotine Polacrilex (Nicotine Polacrilex 2 Mg Gum) 4 mg BUCCAL Q2H PRN PRN Reason: nicotine cravings Last Admin: 02/11/23 14:15 Dose: 4 mg Nicotine Polacrilex (Nicotine Polacrilex 2 Mg Gum) 2 mg BUCCAL Q2H PRN PRN Reason: Nicotine Cravings Prazosin HCl (Prazosin Hcl 1 Mg Capsule) 4 mg PO BEDTIME [facility]; Protocol Quetiapine Fumarate (Quetiapine Fumarate 50 Mg Tablet) 50 mg PO BEDTIME DENIA Sertraline HCl (Sertraline Hcl 50 Mg Tablet) 50 mg PO DAILY [facility] Last Admin: 02/13/23 14:53 Dose: 50 mg Thiamine HCl (Thiamine Hcl 100 Mg Tablet) 100 mg PO DAILY [facility] Last Admin: 02/13/23 08:43 Dose: 100 mg Trazodone HCl (Trazodone Hcl 100 Mg Tablet) 200 mg PO BEDTIME DENIA Allergies Allergies Allergy/AdvReac Type Severity Reaction Status Date / Time seafood Allergy Hives Verified 02/08/23 12:13 Assessment & Plan Assessment & Plan (1) Chronic post-traumatic stress disorder (PTSD): Status: Acute Code(s): F43.12 - Post-traumatic stress disorder, chronic (2) Major depressive disorder: Status: Acute Code(s): F32.9 - Major depressive disorder, single episode, unspecified Plan 02/10: start prazosin titration for nightmares and insomnia in PTSD. start haldol 2 mg Q4H PRN agitation/anger. titrate up as indicated. T/C SSRI, T/C naltrexone. 02/11: No changes to current plan. Open to inpatient substance programming with a view to residential treatment programming there after 02/12: Three-day notice. 02/13: start zoloft 50 daily, seroquel 50 QHS for sleep. schedule trazodone 200 at HS for sleep. increase prazosin to 4 for nightmares and insomnia - had a nightmare last night. c/o disrupted sleep as most concerning Sx. positive change in view, denies intrusive thoughts. planning to discharge to [facility]. Reason for contiued inpatient stay Substantial Risk for: inability to function and rapid decompensation Time Spent With Patient Time: Total time managing care of this patient today __25__ minutes.
[2023-02-13] MEDS: Nicotine 21 MG PATCH.TD24 TRANSDERMA (17:37)
[2023-02-13 21:54] VITALS: BP 119/64; PULSE 70; RESP 18; O2SAT 97
[2023-02-13] MEDS: traZODone HCL 100 MG TABLET 200 MG PO (21:55)
[2023-02-13] MEDS: Prazosin HCL 1 MG CAPSULE 4 MG PO (21:55)
[2023-02-13] MEDS: QUEtiapine Fumarate 50 MG TABLET PO (21:55)
[2023-02-14] MEDS: Thiamine HCL 100 MG TABLET PO (08:39)
[2023-02-14] MEDS: Ibuprofen 600 MG TABLET PO ×3 (08:39→20:50)
[2023-02-14] MEDS: Sertraline HCL 50 MG TABLET PO (08:39)
[2023-02-14 08:40] VITALS: BP 109/87; PULSE 92; RESP 18; TEMP 36.6; O2SAT 97
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
[2023-02-14] MEDS: Acetaminophen 325 MG TABLET 650 MG PO (13:37)
[2023-02-14] MEDS: HaloperidoL 1 MG TABLET 2 MG PO (17:48)
[2023-02-14] MEDS: QUEtiapine Fumarate 50 MG TABLET PO (20:50)
[2023-02-14] MEDS: Mirtazapine 30 MG TABLET PO (20:50)
[2023-02-14] MEDS: Prazosin HCL 1 MG CAPSULE 4 MG PO (20:50)
[2023-02-14 20:53] VITALS: BP 124/76; PULSE 78; TEMP 36.7; O2SAT 97
[2023-02-15] MEDS: hydrOXYzine HCL 25 MG TABLET PO (02:45)
[2023-02-15] MEDS: Thiamine HCL 100 MG TABLET PO (08:12)
[2023-02-15] MEDS: Ibuprofen 600 MG TABLET PO (08:12)
[2023-02-15] MEDS: Sertraline HCL 50 MG TABLET PO (08:13)
[2023-02-15 08:25] VITALS: BP 135/86; PULSE 110; O2SAT 97
== END 2023-02-15 08:45 | disposition home or self-care (01) | DRG 885 ==
LOC: HO.ED 02-09 07:20 → HO.PADLT16 02-09 15:07
PROVIDERS: Physician Assistant Medical; Social Worker; Admitting Provider Psychiatry & Neurology Psychiatry; Emergency Provider Emergency Medicine Emergency Medical Services; Visit Provider Psychiatry & Neurology Psychiatry
DX: F33.1 Major depressive disorder, recurrent, moderate (principal); R45.851 Suicidal ideations; F43.12 Post-traumatic stress disorder, chronic; F17.210 Nicotine dependence, cigarettes, uncomplicated; Z59.02 Unsheltered homelessness; Z71.6 Tobacco abuse counseling; Z79.899 Other long term (current) drug therapy
CPT/HCPCS: 36415; 80053; 80061; 80143; 80179; 80307; 81001; 81003; 82077; 85025; 87635; 93005; 99285; S9485

== ENCOUNTER 2023-02-16 20:30 | Emergency (ER) | payer MEDICAID, SELFPAY ==
[2023-02-16 20:44] VITALS: BP 137/79; PULSE 96; RESP 16; TEMP 37; O2SAT 95; BMI 22.9
[2023-02-16 21:13] LABS: Appearance Urine Clear; Color Urine Yellow; Glucose Urine UA Negative (Negative); Leukocyte Esterase Urine Negative (Negative); Nitrite Urine Negative (Negative); PH 7.5 (5.0-9.0); Specific Gravity - Urine 1.025 (1.005-1.025); Urine Blood Negative (Negative); Urine Ketones Trace mg/dL (Negative); Urine Protein Trace mg/dL (Neg-Trace)
[2023-02-16 21:24] LABS: COVID-19 Test Negative (Negative); IDNOW Serial# BCCEAD1C
[2023-02-16 21:43] LABS: Amphetamine Screen Urine Not Detected (Not Detect); Barbiturates, Urine Not Detected (Not Detect); Benzodiazepines Screen Urine Not Detected (Not Detect); Cannabinoid Screen Urine POSITIVE (Not Detect); Cocaine Screen Urine POSITIVE (Not Detect); Fentanyl, urine Not Detected (Not Detect); Opiate Screen Urine Not Detected (Not Detect); Phencyclidine Screen Urine Not Detected (Not Detect)
[2023-02-16 22:07] LABS: MANUAL DIFF FLAG NO
[2023-02-16 22:08] LABS: Basophils Absolute Auto 0.1 X10*3/uL (0.0-0.2); Basophils Percent Auto 0.7 % (0-2); Eosinophils Absolute Auto 0.1 X10*3/uL (0.0-0.4); Eosinophils Percent Auto 1.2 % (0-4); Hemoglobin 12.9 g/dl (14.0-18.0); Imm Gran Abs Auto 0.02 X10*3/uL (0.00-0.03); Imm Gran Pct Auto 0.2 % (0.0-0.4); Lymphocytes Absolute Auto 2.2 X10*3/uL (1.2-4.9); Lymphocytes Percent Auto 26.1 % (20-40); Mean Corpuscular HGB Conc 33.9 g/dl (31.0-36.0); Mean Corpuscular Hemoglobin 31.9 pg (27.0-33.0); Mean Corpuscular Volume 94.1 fL (80.0-98.0); Mean Platelet Volume 11.1 fL (9.4-12.4); Monocytes Absolute Auto 0.9 X10*3/uL (0.1-1.2); Monocytes Percent Auto 10.3 % (2-11); Neutrophils Absolute Auto 5.2 x10*3/uL (2.0-8.3); Neutrophils Percent Auto 61.5 % (45-73); Platelet Count 230 X10*3/uL (160-400); Red Blood Count 4.04 X10*6/uL (4.60-5.80); White Blood Count 8.5 X10*3/uL (4.8-10.8)
[2023-02-16 22:29] LABS: Acetaminophen LAB < 17 mcg/mL (<30); Alanine Aminotransferase 14 U/L (0-40); Albumin Level 4.2 g/dL (3.5-5.0); Alkaline Phosphatase 68 U/L (39-117); Anion Gap 12 (12-20); Aspartate Amino Transferase 14 U/L (5-37); Bilirubin Total 0.3 mg/dL (0.0-1.0); Blood Urea Nitrogen 22 mg/dL (9-16); Carbon Dioxide 26 mmol/L (22-29); Chloride 108 mmol/L (96-108); Creatinine Clr Calc Pharmacy 116.1; Estimated Glomerular Filt Rate > 60; Ethanol < 10 mg/dL; Glucose Random 131 mg/dL (60-115); Magnesium 2.4 mg/dL (1.6-2.6); Potassium 4.6 mmol/L (3.3-5.1); Salicylate < 5.0 mg/dL (15-30); Sodium 141 mmol/L (135-145); Total Protein 6.3 g/dL (6.5-8.0)
--- NOTE | 2023-02-16 22:53 | MHC.CARE ---
Pt contacted the CARE Team at 9pm reporting that he Messed up when t/w asked him to elaborate further he discussed that he was just d/c from the unit yesterday and did not fill his prescriptions. T/w encouraged him to fill his prescriptions and informed him of 29/05 pharmacy. Pt expressed that he was feeling unsafe and suicidal . Pt stated he wanted to come back to the ED because I left too soon . T/w advised pt that it was unlikely he would be readmitted, but needs to be evaluated prior to disposition. I also informed him of mobile crisis, however if feeling unsafe to return to the ED and he states he was coming.
--- NOTE | 2023-02-16 23:49 | ED_ITS ---
HPI - Psych General Chief Complaint: Psychiatric Symptoms <WAYNE Suárez Last Filed: 02/17/23 01:31> Stated Complaint: Crisis <WAYNE Suárez Last Filed: 02/17/23 01:31> Time Seen by Provider: 02/16/23 20:41 <WAYNE Suárez Last Filed: 02/17/23 01:31> Source: patient <WAYNE Suárez Last Filed: 02/17/23 01:31> Mode of arrival: ambulatory <WAYNE Suárez Last Filed: 02/17/23 01:31> Limitations: no limitations <WAYNE Suárez Last Filed: 02/17/23 01:31> History of Present Illness HPI Narrative: This is a 33-year-old male history of major depression, suicidal ideation, PTSD, self presenting to this facility for intermittent suicidal thoughts without particular plan or intent. Patient was recently discharged from [facility] he feels as though he was not ready to leave. Unable to identify a specific trigge r. Denies visual, auditory and tactile hallucinations. Denies drugs, alcohol and tobacco. No medical complaints at this time. Reports med compliance. <WAYNE Suárez Last Filed: 02/17/23 01:31> Related Data Home Medications: Previous Rx's Medication Instructions Recorded benzocaine 20 % mucosal gel 1 appl mucous membrane QID PRN 02/14/23 (Anbesol (benzocaine) Maximum toothache 15 days #50 grams Strength) haloperidol 1 mg tablet 2 mg PO DAILY PRN agitation 30 02/14/23 days #60 tabs hydroxyzine HCl 25 mg tablet 25 mg PO DAILY PRN Anxiety 30 days 02/14/23 #30 tabs ibuprofen 600 mg tablet 600 mg PO TID 30 days #90 tabs 02/14/23 mirtazapine 30 mg tablet 30 mg PO BEDTIME 30 days #30 tabs 02/14/23 prazosin 1 mg capsule 4 mg PO BEDTIME 30 days #120 caps 02/14/23 quetiapine 50 mg tablet 50 mg PO BEDTIME 30 days #30 tabs 02/14/23 sertraline 50 mg tablet 50 mg PO DAILY 30 days #30 tabs 02/14/23 <WAYNE Suárez Last Filed: 02/17/23 01:31> Allergies/Adverse Reactions: Allergies Allergy/AdvReac Type Severity Reaction Status Date / Time seafood Allergy Hives Verified 02/08/23 12:13 <WAYNE Suárez Last Filed: 02/17/23 01:31> Review of Systems Review of Systems: Constitutional : No Fever, No Chills ENT/Mouth : No Ear Pain, No Nasal Congestion, No sore throat Eyes: No Eye Pain, No Swelling, No Redness Cardiovascular : No Chest Pain, No SOB Respiratory : No Cough, No Sputum, No Dyspnea Gastrointestinal : No Nausea, No Vomiting, No Diarrhea, No Hematochezia, No Melena Genitourinary : No Dysuria, No Urinary Frequency, No Hematuria Musculoskeletal : No Myalgias Skin : No Skin Lesions, No rash Neuro : No Weakness, No Numbness, No Paresthesias, No Dizziness, No Headache Psych : positive Anxiety, positive Depression, positive SI. No HI All other systems reviewed and are negative <WAYNE Suárez Last Filed: 02/17/23 01:31> Yes all other systems are reviewed and are negative <WAYNE Suárez Last Filed: 02/17/23 01:31> [facility] Past Medical History Attestation statement: The following information was validated with the patient. <WAYNE Suárez Last Filed: 02/17/23 01:31> Source: old records reviewed and nursing notes reviewed <WAYNE Suárez Last Filed: 02/17/23 01:31> Social History Social History: Social History Household Members: None Housing: Homeless Do you presently have visiting nurse or other home services: No Patient Tobacco Use Status: Current everyday Tobacco user Tobacco use type: Cigarette Cigarette Packs Per Day: 1 Cigarettes Per Day: 20.0 e-Cigarette/Vaping Use: Currently Using Second Hand Smoke Exposure: Yes Substance Use Type: Crack/Cocaine and Marijuana Advance Directives: No Advance Directives Information Provided: No Healthcare Proxy: No Guardian: No service: No Sexual orientation: Decline to Answer <WAYNE Suárez - Last Filed: 02/17/23 01:31> Physical Exam Vital Signs: Vital Signs: Last Vital Signs Temp 97.6 F 02/17/23 06:39 Pulse 74 02/17/23 06:39 Resp 16 02/17/23 06:39 BP 118/71 02/17/23 06:39 Pulse Ox 98 02/17/23 06:39 O2 Del Method Room Air 02/17/23 06:39 BMI result Body Mass Index 22.9 Vital signs stable <WAYNE Suárez - Last Filed: 02/17/23 01:31> Vital Signs: Last Vital Signs Temp 97.6 F 02/17/23 06:39 Pulse 74 02/17/23 06:39 Resp 16 02/17/23 06:39 BP 118/71 02/17/23 06:39 Pulse Ox 98 02/17/23 06:39 O2 Del Method Room Air 02/17/23 06:39 BMI result Body Mass Index 22.9 <Kirit Mark MD - Last Filed: 02/17/23 13:58> Appearance: Alert.? Oriented X3.? No acute distress.? Head: Normocephalic, atraumatic, no step-offs or deformities Eyes: Pupils equal, round and reactive to light.? Neck: Normal inspection.? Neck supple.? CVS: Normal heart rate and rhythm.? Pulses normal.? Respiratory: No respiratory distress.? Breath sounds normal.? Abdomen: Soft and nontender.? Skin: Skin warm and dry.? Normal skin color.? Normal skin turgor.? Extremities: No lower extremity edema.? No calf ttp. 5/5 strength to bilateral upper and lower extremities Neuro: Oriented X 3.? No motor deficit.? No sensory deficit. CN 2-12 intact <WAYNE Suárez - Last Filed: 02/17/23 01:31> Course Reevaluation(s) Reevaluation #1: CBC with normocytic anemia which appears to be around patient's baseline. Chemistry unremarkable. Slightly elevated BUN however patient tolerating p.o., no need for IV fluids at this time. UA without infection. Salicylates, acetaminophen and ethanol negative. Cocaine and marijuana positive. Negative for COVID. At this time patient to be placed in observation to allow more time to be evaluated time observation started patient common cooperative no acute distress will continue to monitor <WAYNE Suárez - Last Filed: 02/17/23 01:31> Time: 23:52 <WAYNE Suárez - Last Filed: 02/17/23 01:31> Reevaluation #2: DDS bed search <WAYNE Suárez - Last Filed: 02/17/23 01:31> Time: 01:31 <WAYNE Suárez - Last Filed: 02/17/23 01:31> Reevaluation #3: 02/17/23 7 AM stable overnight he has been medical cleared,VSS,no new complaints remain inpatient level of care <Kirit Mark MD - Last Filed: 02/17/23 13:58> Time: 07:03 <Kirit Mark MD - Last Filed: 02/17/23 13:58> Additional Reevaluation(s): 1: 58 PM 02/17/23 seen by crisis again cleared for d/c <Kirit Mark MD - Last Filed: 02/17/23 13:58> Medications Administered Generic Name Dose Route Start Last Admin Trade Name Freq PRN Reason Stop Dose Admin Ibuprofen 600 mg 02/17/23 09:00 02/17/23 09:18 Ibuprofen 600 Mg Tablet PO 600 mg TID DENIA Administration Sertraline HCl 50 mg 02/17/23 09:00 02/17/23 09:18 Sertraline Hcl 50 Mg Tablet PO 50 mg DAILY DENIA Administration <WAYNE Suárez - Last Filed: 02/17/23 01:31> Medications Administered Generic Name Dose Route Start Last Admin Trade Name Freq PRN Reason Stop Dose Admin Ibuprofen 600 mg 02/17/23 09:00 02/17/23 09:18 Ibuprofen 600 Mg Tablet PO 600 mg TID DENIA Administration Sertraline HCl 50 mg 02/17/23 09:00 02/17/23 09:18 Sertraline Hcl 50 Mg Tablet PO 50 mg DAILY DENIA Administration <Kirit Mark MD - Last Filed: 02/17/23 13:58> Medical Decision Making Medical Decision Making [facility] Narrative: [id number] 33-year-old male presents with suicidal ideation without intent or plan, was recently discharged from 5 yesterday. Reports med compliance. Physical exam benign. Likely PTSD with suicidal ideation and major depression. Unlikely metabolic derangements. Plan at this time medical clearance evaluation by behavioral health team <WAYNE Suárez - Last Filed: 02/17/23 01:31> Differential Diagnosis Differential Diagnoses: The differential diagnosis associated with the presentation includes <WAYNE Suárez - Last Filed: 02/17/23 01:31> Likely PTSD with suicidal ideation and major depression. Unlikely metabolic derangements. <WAYNE Suárez - Last Filed: 02/17/23 01:31> Admission/Observation Consideration of admission/observation: Escalation of care including admission/observation considered <WAYNE Suárez - Last Filed: 02/17/23 01:31> Likely <WAYNE Suárez - Last Filed: 02/17/23 01:31> Lab Data MDM Lab Attestation statement: I reviewed the patient's lab results. <WAYNE Suárez - Last Filed: 02/17/23 01:31> Result Diagrams: 02/16/23 21:56 02/16/23 21:56 <WAYNE Suárez - Last Filed: 02/17/23 01:31> Labs: Lab Results 02/16/23 02/16/23 02/16/23 Range/Units 21:02 21:02 21:02 WBC (4.8-10.8) X10*3/uL RBC (4.60-5.80) X10*6/uL Hgb (14.0-18.0) g/dl Hct (42.0-52.0) % MCV (80.0-98.0) fL MCH (27.0-33.0) pg MCHC (31.0-36.0) g/dl RDW (11.0-16.0) % Plt Count (160-400) X10*3/uL MPV (9.4-12.4) fL Immature Gran % (Auto) (0.0-0.4) % Neut % (Auto) (45-73) % Lymph % (Auto) (20-40) % [place] % (Auto) (2-11) % Eos % (Auto) (0-4) % Baso % (Auto) (0-2) % Lymph # (Auto) (1.2-4.9) X10*3/uL [place] # (Auto) (0.1-1.2) X10*3/uL Eos # (Auto) (0.0-0.4) X10*3/uL Baso # (Auto) (0.0-0.2) X10*3/uL Abs Immat Gran (auto) (0.00-0.03) X10*3/uL Absolute Neuts (auto) (2.0-8.3) x10*3/uL Absolute Nucleated RBC (0.0-0.012) X10*3/uL Nucleated RBC % (auto) (0.0-0.2) /100WBC Sodium (135-145) mmol/L Potassium (3.3-5.1) mmol/L Chloride (96-108) mmol/L Carbon Dioxide (22-29) mmol/L Anion Gap (12-20) BUN (9-16) mg/dL Creatinine (0.5-1.4) mg/dL Estim Creat Clear Calc Estimated GFR Random Glucose (60-115) mg/dL Calcium (8.4-10.2) mg/dL Magnesium (1.6-2.6) mg/dL Total Bilirubin (0.0-1.0) mg/dL AST (5-37) U/L ALT (0-40) U/L Alkaline Phosphatase (39-117) U/L Total Protein (6.5-8.0) g/dL Albumin (3.5-5.0) g/dL Urine Color Yellow Urine Appearance Clear Urine pH 7.5 (5.0-9.0) Ur Specific [place] 1.025 (1.005-1.025) Urine Protein Trace (Neg-Trace) mg/dL Urine Glucose (UA) Negative (Negative) mg/dL Urine Ketones Trace (Negative) mg/dL Urine Blood Negative (Negative) Urine Nitrite Negative (Negative) Ur Leukocyte Esterase Negative (Negative) Salicylates (15-30) mg/dL Urine Opiates Screen Not Detected (Not Detect) Urine Fentanyl Screen Not Detected (Not Detect) Acetaminophen (<30) mcg/mL Ur Barbiturates Screen Not Detected (Not Detect) Ur Phencyclidine Scrn Not Detected (Not Detect) Ur Amphetamines Screen Not Detected (Not Detect) U Benzodiazepines Scrn Not Detected (Not Detect) Urine Cocaine Screen POSITIVE H (Not Detect) U Marijuana (THC) Screen POSITIVE H (Not Detect) Ethyl Alcohol mg/dL COVID-19 (PATY) Negative (Negative) COVID-19 Clin Com See Note 02/16/23 02/16/23 Range/Units 21:56 21:56 WBC 8.5 (4.8-10.8) X10*3/uL RBC 4.04 L (4.60-5.80) X10*6/uL Hgb 12.9 L (14.0-18.0) g/dl Hct 38.0 L (42.0-52.0) % MCV 94.1 (80.0-98.0) fL MCH 31.9 (27.0-33.0) pg MCHC 33.9 (31.0-36.0) g/dl RDW 14.0 (11.0-16.0) % Plt Count 230 (160-400) X10*3/uL MPV 11.1 (9.4-12.4) fL Immature Gran % (Auto) 0.2 (0.0-0.4) % Neut % (Auto) 61.5 (45-73) % Lymph % (Auto) 26.1 (20-40) % [place]haw % (Auto) 10.3 (2-11) % Eos % (Auto) 1.2 (0-4) % Baso % (Auto) 0.7 (0-2) % Lymph # (Auto) 2.2 (1.2-4.9) X10*3/uL [place] # (Auto) 0.9 (0.1-1.2) X10*3/uL Eos # (Auto) 0.1 (0.0-0.4) X10*3/uL Baso # (Auto) 0.1 (0.0-0.2) X10*3/uL Abs Immat Gran (auto) 0.02 (0.00-0.03) X10*3/uL Absolute Neuts (auto) 5.2 (2.0-8.3) x10*3/uL Absolute Nucleated RBC 0.000 (0.0-0.012) X10*3/uL Nucleated RBC % (auto) 0.0 (0.0-0.2) /100WBC Sodium 141 (135-145) mmol/L Potassium 4.6 (3.3-5.1) mmol/L Chloride 108 (96-108) mmol/L Carbon Dioxide 26 (22-29) mmol/L Anion Gap 12 (12-20) BUN 22 H (9-16) mg/dL Creatinine 0.92 (0.5-1.4) mg/dL Estim Creat Clear Calc 116.1 Estimated GFR > 60 Random Glucose 131 H (60-115) mg/dL Calcium 9.0 (8.4-10.2) mg/dL Magnesium 2.4 (1.6-2.6) mg/dL Total Bilirubin 0.3 (0.0-1.0) mg/dL AST 14 (5-37) U/L ALT 14 (0-40) U/L Alkaline Phosphatase 68 (39-117) U/L Total Protein 6.3 L (6.5-8.0) g/dL Albumin 4.2 (3.5-5.0) g/dL Urine Color Urine Appearance Urine pH (5.0-9.0) Ur Specific [place] (1.005-1.025) Urine Protein (Neg-Trace) mg/dL Urine Glucose (UA) (Negative) mg/dL Urine Ketones (Negative) mg/dL Urine Blood (Negative) Urine Nitrite (Negative) Ur Leukocyte Esterase (Negative) Salicylates < 5.0 L (15-30) mg/dL Urine Opiates Screen (Not Detect) Urine Fentanyl Screen (Not Detect) Acetaminophen < 17 (<30) mcg/mL Ur Barbiturates Screen (Not Detect) Ur Phencyclidine Scrn (Not Detect) Ur Amphetamines Screen (Not Detect) U Benzodiazepines Scrn (Not Detect) Urine Cocaine Screen (Not Detect) U Marijuana (THC) Screen (Not Detect) Ethyl Alcohol < 10 mg/dL COVID-19 (PATY) (Negative) COVID-19 Clin Com <WAYNE Suárez - Last Filed: 02/17/23 01:31> Lab Results 04/13/23 04/13/23 04/13/23 Range/Units 21:02 21:02 21:02 WBC (4.8-10.8) X10*3/uL RBC (4.60-5.80) X10*6/uL Hgb (14.0-18.0) g/dl Hct (42.0-52.0) % MCV (80.0-98.0) fL MCH (27.0-33.0) pg MCHC (31.0-36.0) g/dl RDW (11.0-16.0) % Plt Count (160-400) X10*3/uL MPV (9.4-12.4) fL Immature Gran % (Auto) (0.0-0.4) % Neut % (Auto) (45-73) % Lymph % (Auto) (20-40) % Kershaw % (Auto) (2-11) % Eos % (Auto) (0-4) % Baso % (Auto) (0-2) % Lymph # (Auto) (1.2-4.9) X10*3/uL [place] # (Auto) (0.1-1.2) X10*3/uL Eos # (Auto) (0.0-0.4) X10*3/uL Baso # (Auto) (0.0-0.2) X10*3/uL Abs Immat Gran (auto) (0.00-0.03) X10*3/uL Absolute Neuts (auto) (2.0-8.3) x10*3/uL Absolute Nucleated RBC (0.0-0.012) X10*3/uL Nucleated RBC % (auto) (0.0-0.2) /100WBC Sodium (135-145) mmol/L Potassium (3.3-5.1) mmol/L Chloride (96-108) mmol/L Carbon Dioxide (22-29) mmol/L Anion Gap (12-20) BUN (9-16) mg/dL Creatinine (0.5-1.4) mg/dL Estim Creat Clear Calc Estimated GFR Random Glucose (60-115) mg/dL Calcium (8.4-10.2) mg/dL Magnesium (1.6-2.6) mg/dL Total Bilirubin (0.0-1.0) mg/dL AST (5-37) U/L ALT (0-40) U/L Alkaline Phosphatase (39-117) U/L Total Protein (6.5-8.0) g/dL Albumin (3.5-5.0) g/dL Urine Color Yellow Urine Appearance Clear Urine pH 7.5 (5.0-9.0) Ur Specific [place] 1.025 (1.005-1.025) Urine Protein Trace (Neg-Trace) mg/dL Urine Glucose (UA) Negative (Negative) mg/dL Urine Ketones Trace (Negative) mg/dL Urine Blood Negative (Negative) Urine Nitrite Negative (Negative) Ur Leukocyte Esterase Negative (Negative) Salicylates (15-30) mg/dL Urine Opiates Screen Not Detected (Not Detect) Urine Fentanyl Screen Not Detected (Not Detect) Acetaminophen (<30) mcg/mL Ur Barbiturates Screen Not Detected (Not Detect) Ur Phencyclidine Scrn Not Detected (Not Detect) Ur Amphetamines Screen Not Detected (Not Detect) U Benzodiazepines Scrn Not Detected (Not Detect) Urine Cocaine Screen POSITIVE H (Not Detect) U Marijuana (THC) Screen POSITIVE H (Not Detect) Ethyl Alcohol mg/dL COVID-19 (PATY) Negative (Negative) COVID-19 Clin Com See Note 02/16/23 02/16/23 Range/Units 21:56 21:56 WBC 8.5 (4.8-10.8) X10*3/uL RBC 4.04 L (4.60-5.80) X10*6/uL Hgb 12.9 L (14.0-18.0) g/dl Hct 38.0 L (42.0-52.0) % MCV 94.1 (80.0-98.0) fL MCH 31.9 (27.0-33.0) pg MCHC 33.9 (31.0-36.0) g/dl RDW 14.0 (11.0-16.0) % Plt Count 230 (160-400) X10*3/uL MPV 11.1 (9.4-12.4) fL Immature Gran % (Auto) 0.2 (0.0-0.4) % Neut % (Auto) 61.5 (45-73) % Lymph % (Auto) 26.1 (20-40) % Kershaw % (Auto) 10.3 (2-11) % Eos % (Auto) 1.2 (0-4) % Baso % (Auto) 0.7 (0-2) % Lymph # (Auto) 2.2 (1.2-4.9) X10*3/uL [place]haw # (Auto) 0.9 (0.1-1.2) X10*3/uL Eos # (Auto) 0.1 (0.0-0.4) X10*3/uL Baso # (Auto) 0.1 (0.0-0.2) X10*3/uL Abs Immat Gran (auto) 0.02 (0.00-0.03) X10*3/uL Absolute Neuts (auto) 5.2 (2.0-8.3) x10*3/uL Absolute Nucleated RBC 0.000 (0.0-0.012) X10*3/uL Nucleated RBC % (auto) 0.0 (0.0-0.2) /100WBC Sodium 141 (135-145) mmol/L Potassium 4.6 (3.3-5.1) mmol/L Chloride 108 (96-108) mmol/L Carbon Dioxide 26 (22-29) mmol/L Anion Gap 12 (12-20) BUN 22 H (9-16) mg/dL Creatinine 0.92 (0.5-1.4) mg/dL Estim Creat Clear Calc 116.1 Estimated GFR > 60 Random Glucose 131 H (60-115) mg/dL Calcium 9.0 (8.4-10.2) mg/dL Magnesium 2.4 (1.6-2.6) mg/dL Total Bilirubin 0.3 (0.0-1.0) mg/dL AST 14 (5-37) U/L ALT 14 (0-40) U/L Alkaline Phosphatase 68 (39-117) U/L Total Protein 6.3 L (6.5-8.0) g/dL Albumin 4.2 (3.5-5.0) g/dL Urine Color Urine Appearance Urine pH (5.0-9.0) Ur Specific [place] (1.005-1.025) Urine Protein (Neg-Trace) mg/dL Urine Glucose (UA) (Negative) mg/dL Urine Ketones (Negative) mg/dL Urine Blood (Negative) Urine Nitrite (Negative) Ur Leukocyte Esterase (Negative) Salicylates < 5.0 L (15-30) mg/dL Urine Opiates Screen (Not Detect) Urine Fentanyl Screen (Not Detect) Acetaminophen < 17 (<30) mcg/mL Ur Barbiturates Screen (Not Detect) Ur Phencyclidine Scrn (Not Detect) Ur Amphetamines Screen (Not Detect) U Benzodiazepines Scrn (Not Detect) Urine Cocaine Screen (Not Detect) U Marijuana (THC) Screen (Not Detect) Ethyl Alcohol < 10 mg/dL COVID-19 (PATY) (Negative) COVID-19 Clin Com <Kirit Mark MD - Last Filed: 02/17/23 13:58> Core Measures AMI core measures followed: Yes <WAYNE Suárez - Last Filed: 02/17/23 01:31> Measure exclusions: not indicated <WAYNE Suárez - Last Filed: 02/17/23 01:31> Critical Care Time Critical Care Time Critical Care Time: No <WAYNE Suárez - Last Filed: 02/17/23 01:31> Discharge Plan Discharge Clinical Impression: Chronic post-traumatic stress disorder (PTSD), Suicidal ideation, Major depressive disorder <WAYNE Suárez - Last Filed: 02/17/23 01:31> Patient Disposition: Home, Self-Care <WAYNE Suárez - Last Filed: 02/17/23 01:31> Instructions: Depression (DC) <WAYNE Suárez - Last Filed: 02/17/23 01:31> Prescriptions: No Action prazosin 1 mg Capsule 4 mg PO BEDTIME 30 Days Qty: 120 0RF Protocol: Hold for SBP< HOLD for SBP < : 90 haloperidol 1 mg Tablet 2 mg PO DAILY PRN (Reason: agitation) 30 Days Qty: 60 0RF mirtazapine 30 mg Tablet 30 mg PO BEDTIME 30 Days Qty: 30 0RF hydroxyzine HCl 25 mg Tablet 25 mg PO DAILY PRN (Reason: Anxiety) 30 Days Qty: 30 0RF ibuprofen 600 mg Tablet 600 mg PO TID 30 Days Qty: 90 0RF Anbesol (benzocaine) Max Str 20 % Gel 1 appl mucous membrane QID PRN (Reason: toothache) 15 Days Qty: 50 0RF Protocol: Apply to: Apply to: tooth sertraline 50 mg Tablet 50 mg PO DAILY 30 Days Qty: 30 0RF quetiapine 50 mg Tablet 50 mg PO BEDTIME 30 Days Qty: 30 0RF <WAYNE Suárez - Last Filed: 02/17/23 01:31> Interventions: [place]-Suicide Risk Severity Scale Last Done: 02/17/23 05:17 <WAYNE Suárez - Last Filed: 02/17/23 01:31>
--- NOTE | 2023-02-17 05:44 | PC.NURSE ---
Patient slept through the night, no distress observed/reported, med reconciliation completed/approved/MAR active, disposition per care team is voluntary dual diagnosis bed search, behavior non concerning, labs completed/resulted, VSS, will continue to monitor.
[2023-02-17 06:39] VITALS: BP 118/71; PULSE 74; RESP 16; TEMP 36.4; O2SAT 98
[2023-02-17] MEDS: Sertraline HCL 50 MG TABLET PO (09:18)
[2023-02-17] MEDS: Ibuprofen 600 MG TABLET PO (09:18)
--- NOTE | 2023-02-17 09:23 | PC.NURSE ---
Pt awoke for AM meds then back to sleep. Polite while awake. Ibuprofen given as ordered for 10 dental pain. Calm and cooperative.
--- NOTE | 2023-02-17 10:45 | MHC.CARE ---
T/w checked in with patient, who reports belief he left the unit ([facility]) too soon, also expressing interest in [facility] level of care type, or similar type [facility] services. Referral sent to Recovery / [facility] team. Plan to follow up regarding needs following [facility] meeting
--- NOTE | 2023-02-17 11:45 | MHC.RECOVRN ---
Met with pt in [facility] to discuss substance use and provide support. Pt awake, alert, easily engages in conversation. Pt reports having been discharged from inpatient too soon and would like to get back into treatment, including inpatient [facility] tx. 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 Pt reports a period of 2 1/2 years in senior care where he did not use substances. Pt has not received tx in the past for stimulant use disorder. Discussed levels of care and appropriateness for CSS. Pt interested in CSS referrals. Pt educated on challeneges of CSS placement from ED. Provided pt with recovery rescources. Pt denies questions or concerns for t/w at this time. T/w will conduct CSS bedsearch. CARE Team aware.
--- NOTE | 2023-02-17 13:18 | MHC.CARE ---
02/17/23 [facility] bed search is now exhausted. Referral was faxed to [facility] for review & he was declined due to being too psychiatrically acute for their detox unit. He would be more suited for detox placement that is based in a hospital.
--- NOTE | 2023-02-17 13:40 | MHC.CARE ---
patient informed that [facility] may have a bed for him still, per Lore Dave from [facility]. T/w provided patient with the number and contact and he agrees to call them. Aware he cannot remain in the ED all weekend.
== END 2023-02-17 14:04 | disposition home or self-care (01) ==
PROVIDERS: Physician Assistant; Emergency Provider Emergency Medicine
DX: F33.1 Major depressive disorder, recurrent, moderate (principal); R45.851 Suicidal ideations; Z20.822 Contact with and (suspected) exposure to COVID-19; Z20.828 Contact with and (suspected) exposure to other viral communicable diseases; Z79.899 Other long term (current) drug therapy
CPT/HCPCS: 80053; 80143; 80179; 80307; 81003; 82077; 83735; 85025; 87635; 99284; S9485

== ENCOUNTER 2025-01-08 20:40 | Inpatient (IN) | payer OTHER, SELFPAY ==
--- NOTE | ~2025-01-08 | US_ITS ---
EXAMINATION: US ABDOMEN LIMITED CLINICAL INFORMATION: Elevated liver function test.. COMPARISON: None available. TECHNIQUE: Real-time imaging of the right upper quadrant abdominal viscera. Limited exam.. FINDINGS: PANCREAS: No peripancreatic fluid collections. LIVER: Liver measures 16 cm. Normal echotexture. No nodular surface. There is a 1.7 x 4.3 cm well-defined hyperechoic lesion in the periphery of the left hepatic lobe.. No intrahepatic biliary ductal dilatation. GALLBLADDER: There is an intraluminal 9 mm hyperechoic lesion with posterior echogenic shadowing the gallbladder neck. The gallbladder is contracted. Gallbladder wall measures 3 mm. No pericholecystic fluid collection. COMMON BILE DUCT: 2 mm. RIGHT KIDNEY: 12 cm. Normal echotexture. No hydronephrosis. Normal renal cortical thickness. No gross solid or cystic lesion. Normal flow on color Doppler interrogation of the renal hilum. FREE FLUID: None. US/US abdomen limited IMPRESSION: Cholelithiasis. 4.3 cm hyperechoic lesion in the left hepatic lobe. Statistically may represent hemangioma. Electronically signed by: Rolly Hooks MD 01/09/2025 03:43 PM EST
[2025-01-08 20:43] VITALS: BP 144/80; PULSE 90; O2SAT 96; BMI 25.8
[2025-01-08 21:26] VITALS: BP 127/88; PULSE 100; RESP 16; TEMP 37.2; O2SAT 97
[2025-01-08 21:26] LABS: MANUAL DIFF FLAG NO
[2025-01-08 21:31] LABS: Basophils Absolute Auto 0.1 X10*3/uL (0.0-0.2); Basophils Percent Auto 0.4 % (0-2); Eosinophils Percent Auto 0.1 % (0-4); Hematocrit 30.2 % (42.0-52.0); Hemoglobin 10.3 g/dl (14.0-18.0); Imm Gran Abs Auto 0.13 X10*3/uL (0.00-0.03); Imm Gran Pct Auto 0.7 % (0.0-0.4); Lymphocytes Absolute Auto 1.5 X10*3/uL (1.2-4.9); Lymphocytes Percent Auto 7.7 % (20-40); Mean Corpuscular HGB Conc 34.1 g/dl (31.0-36.0); Mean Corpuscular Volume 96.8 fL (80.0-98.0); Mean Platelet Volume 8.9 fL (9.4-12.4); Monocytes Absolute Auto 1.2 X10*3/uL (0.1-1.2); Monocytes Percent Auto 6.2 % (2-11); Neutrophils Absolute Auto 16.4 x10*3/uL (2.0-8.3); Neutrophils Percent Auto 84.9 % (45-73); Platelet Count 741 X10*3/uL (160-400); Red Blood Count 3.12 X10*6/uL (4.60-5.80); Red Cell Distribution Width 14.7 % (11.0-16.0); White Blood Count 19.4 X10*3/uL (4.8-10.8)
[2025-01-08 21:32] LABS: Appearance Urine Clear; Color Urine Dark Yellow; Glucose Urine UA Negative (Negative); Leukocyte Esterase Urine Negative (Negative); Nitrite Urine Negative (Negative); PH 5.5 (5.0-9.0); Specific Gravity - Urine 1.025 (1.005-1.025); Urine Blood Negative (Negative); Urine Ketones Trace mg/dL (Negative); Urine Protein Trace mg/dL (Neg-Trace)
[2025-01-08 21:45] LABS: Alanine Aminotransferase 179 U/L (0-40); Albumin Level 4.3 g/dL (3.5-5.0); Alkaline Phosphatase 295 U/L (39-117); Anion Gap 14 (12-20); Aspartate Amino Transferase 63 U/L (5-37); Bilirubin Total 0.7 mg/dL (0.0-1.0); Blood Urea Nitrogen 22 mg/dL (9-16); Calcium 9.6 mg/dL (8.4-10.2); Carbon Dioxide 22 mmol/L (22-29); Chloride 105 mmol/L (96-108); Estimated Glomerular Filt Rate > 60; Ethanol < 10 mg/dL; Glucose Random 112 mg/dL (60-115); Lipase 23 U/L (8-78); Potassium 4.2 mmol/L (3.3-5.1); Sodium 137 mmol/L (135-145); Total Protein 7.9 g/dL (6.5-8.0)
[2025-01-08 21:46] LABS: Acetaminophen LAB < 3 mcg/mL (<30); Amphetamine Screen Urine Not Detected (Not Detect); Barbiturates, Urine POSITIVE (Not Detect); Benzodiazepines Screen Urine Not Detected (Not Detect); Buprenorphine Scr Not Detected (Not Detect); Cannabinoid Screen Urine POSITIVE (Not Detect); Cocaine Screen Urine Not Detected (Not Detect); Fentanyl, urine Not Detected (Not Detect); Methadone Screen, Urine Not Detected (Not Detect); Opiate Screen Urine POSITIVE (Not Detect); Oxycodone Screen Urine Positive (Not Detect); Phencyclidine Screen Urine Not Detected (Not Detect); Salicylate < 5.0 mg/dL (15-30)
[2025-01-08 21:53] LABS: Troponin-I High Sensitivity < 2.7 ng/L (<3.5-35.0)
--- NOTE | 2025-01-08 22:10 | ED_ITS ---
HPI - Psych General Chief Complaint: Psychiatric Symptoms Stated Complaint: SI w/attempt took 60 mg oxycodone Time Seen by Provider: 01/08/25 20:59 Source: patient and EMS Mode of arrival: EMS Limitations: no limitations History of Present Illness ED Provider: Dr. Monse Metcalf HPI Narrative: patient comes to the emergency room via ambulance complaining of suicidal ideation. Patient states that earlier today he took 6 tablets of oxycodone. Patient states that he was trying to numb himself and giving himself carriage before ingesting the rest of his oxycodone. Patient states that he was considering committing suicide. Patient states that he is very depressed, lost his father 2 days ago. Patient states that he was discharged from [facility] today from inpatient Psychiatry Related Data Previous Rx's ?Medication ?Instructions ?Recorded benzocaine 20 % mucosal gel 1 appl mucous membrane QID PRN 02/14/23 (Anbesol (benzocaine) Maximum toothache 15 days #50 grams Strength) haloperidol 1 mg tablet 2 mg (2 x 1 mg) PO DAILY PRN 02/14/23 agitation 30 days #60 tabs hydroxyzine HCl 25 mg tablet 25 mg PO DAILY PRN Anxiety 30 days 02/14/23 #30 tabs ibuprofen 600 mg tablet 600 mg PO TID 30 days #90 tabs 02/14/23 mirtazapine 30 mg tablet 30 mg PO BEDTIME 30 days #30 tabs 02/14/23 prazosin 1 mg capsule 4 mg PO BEDTIME 30 days #120 caps 02/14/23 quetiapine 50 mg tablet 50 mg PO BEDTIME 30 days #30 tabs 02/14/23 sertraline 50 mg tablet 50 mg PO DAILY 30 days #30 tabs 02/14/23 Allergies Allergy/AdvReac Type Severity Reaction Status Date / Time seafood Allergy Hives Verified 01/08/25 20:48 Review of Systems 2 Review of Systems: Constitutional : No Weight loss, No Fever, No Chills, No Night Sweats, No Fatigue, No Malaise ENT/Mouth : No Hearing loss, No Ear Pain, No Nasal Congestion, No Sinus Pain, No Hoarseness, No sore throat, No Rhinorrhea, No Swallowing Difficulty Eyes: No Eye Pain, No Swelling, No Redness, No Foreign Body, No Discharge, No Vision Changes Cardiovascular : No Chest Pain, No SOB, No Dyspnea on Exertion, No Orthopnea, No Edema, No Palpitations Respiratory : No Cough, No Sputum, No Wheezing, No Smoke Exposure, No Dyspnea Gastrointestinal : No Nausea, No Vomiting, No Diarrhea, No Constipation, No abdominal Pain, No Hematochezia, No Melena Genitourinary : no irregular bleeding, No Dysuria, No Urinary Frequency, No Hematuria, No Urinary Incontinence, No Urgency, No Flank Pain, No Urinary Flow Changes, No Hesitancy Musculoskeletal : No joint pain, No Myalgias, No Joint Swelling Skin : No Skin Lesions, No rash Neuro : No Weakness, No Numbness, No Paresthesias, No Loss of Consciousness, No Dizziness, No Headache Psych : complaining of depression, suicidal ideation, ingested oxycodone, denies HI Heme/Lymph: No Bruising, No Bleeding,No Lymphadenopathy Endocrine : No Polyuria, No Polydipsia, No Temperature Intolerance PMFSH Past Medical History Medical History (Updated 01/08/25 @ 22:19 by Monse Metcalf MD) Suicidal ideation Polysubstance abuse Chronic post-traumatic stress disorder (PTSD) Social History Social History Household Members: None Housing: Homeless Do you presently have visiting nurse or other home services: No Alcohol intake: former Patient Tobacco Use Status: Current everyday Tobacco user Tobacco use type: Cigarette Cigarette Packs Per Day: 1 Cigarettes Per Day: 20.0 Smoked in Last 30 Days: Yes e-Cigarette/Vaping Use: Currently Using Second Hand Smoke Exposure: Yes Use of substances other than those prescribed or required for medical reasons: Yes Substance Use Type: Marijuana Substance Use Frequency: Daily Advance Directives: No Advance Directives Information Provided: Yes Do you have a plan to hurt others: No Plan service: No Sexual orientation: Decline to Answer Physical Exam 2 Vital Signs: Vital Signs: Last Vital Signs Temp 99 F 01/08/25 21:26 Pulse 88 01/08/25 22:11 Resp 16 01/08/25 22:11 BP 116/69 01/08/25 22:11 Pulse Ox 97 01/08/25 22:11 O2 Del Method Room Air 01/08/25 22:11 BMI result Body Mass Index 25.8 Const: Other: Appearance: Alert. Oriented X3. No acute distress. Eyes: Pupils equal, round and reactive to light. ENT: Pharynx normal. Neck: Normal inspection. Neck supple. No lymph nodes noted. No crepitus CVS: Normal heart rate and rhythm. Pulses normal. Normal S1 and S2 Respiratory: No respiratory distress. Breath sounds normal. No Wheezing. No rales Abdomen: Soft and nontender. No rigidity. No distention. Skin: Skin warm and dry. Normal skin color. Normal skin turgor. Extremities: No lower extremity edema. No Lacerations. No Rash Neuro: Oriented X 3. No motor deficit. No sensory deficit. Moving all extremities. No slurred speech. CN 2 through 12 grossly intact Psych: calm, cooperative, normal affect Course Course Course Narrative: patient on a Section 12 care team consult pending physician observation started at 22:15 Medical Decision Making Differential Diagnosis patient's white blood cell count 19.4, no obvious source of infection. Chemistry at baseline, LFTs a bit bumped from previous LFTs in 2022, no abdominal pain. Toxicology positive for opiates, oxycodone, barbiturates and marijuana, negative for alcohol. Admission/Observation Consideration of admission/observation: Escalation of care including admission/observation considered ( patient is on a Section 12, waiting to be seen by the care team.) Lab Data MDM Lab Attestation statement: I reviewed the patient's lab results. 01/08/25 21:21 01/08/25 21:21 Labs: Lab Results 01/08/25 Range/Units 21:21 WBC 19.4 H (4.8-10.8) X10*3/uL RBC 3.12 L D (4.60-5.80) X10*6/uL Hgb 10.3 L D (14.0-18.0) g/dl Hct 30.2 L D (42.0-52.0) % MCV 96.8 (80.0-98.0) fL MCH 33.0 (27.0-33.0) pg MCHC 34.1 (31.0-36.0) g/dl RDW 14.7 (11.0-16.0) % Plt Count 741 H D (160-400) X10*3/uL MPV 8.9 L (9.4-12.4) fL Immature Gran % (Auto) 0.7 H (0.0-0.4) % Neut % (Auto) 84.9 H (45-73) % Lymph % (Auto) 7.7 L (20-40) % [place] % (Auto) 6.2 (2-11) % Eos % (Auto) 0.1 (0-4) % Baso % (Auto) 0.4 (0-2) % Lymph # (Auto) 1.5 (1.2-4.9) X10*3/uL [place] # (Auto) 1.2 (0.1-1.2) X10*3/uL Eos # (Auto) 0.0 (0.0-0.4) X10*3/uL Baso # (Auto) 0.1 (0.0-0.2) X10*3/uL Abs Immat Gran (auto) 0.13 H (0.00-0.03) X10*3/uL Absolute Neuts (auto) 16.4 H (2.0-8.3) x10*3/uL Absolute Nucleated RBC 0.000 (0.0-0.012) X10*3/uL Nucleated RBC % (auto) 0.0 (0.0-0.2) /100WBC Sodium 137 (135-145) mmol/L Potassium 4.2 (3.3-5.1) mmol/L Chloride 105 (96-108) mmol/L Carbon Dioxide 22 (22-29) mmol/L Anion Gap 14 (12-20) BUN 22 H (9-16) mg/dL Creatinine 0.73 (0.5-1.4) mg/dL Estim Creat Clear Calc 132.0 Estimated GFR > 60 Random Glucose 112 (60-115) mg/dL Calcium 9.6 D (8.4-10.2) mg/dL Total Bilirubin 0.7 (0.0-1.0) mg/dL AST 63 H (5-37) U/L ALT 179 H (0-40) U/L Alkaline Phosphatase 295 H (39-117) U/L Troponin I High Sens < 2.7 (<3.5-35.0) ng/L Total Protein 7.9 (6.5-8.0) g/dL Albumin 4.3 (3.5-5.0) g/dL Lipase 23 (8-78) U/L Urine Color Dark Yellow Urine Appearance Clear Urine pH 5.5 (5.0-9.0) Ur Specific [place] 1.025 (1.005-1.025) Urine Protein Trace (Neg-Trace) mg/dL Urine Glucose (UA) Negative (Negative) mg/dL Urine Ketones Trace (Negative) mg/dL Urine Blood Negative (Negative) Urine Nitrite Negative (Negative) Ur Leukocyte Esterase Negative (Negative) Salicylates < 5.0 L (15-30) mg/dL Urine Opiates Screen POSITIVE H (Not Detect) Ur Buprenorphine Scrn Not Detected (Not Detect) ng/mL Ur Oxycodone Screen Positive H (Not Detect) ng/mL Urine Methadone Screen Not Detected (Not Detect) ng/mL Urine Fentanyl Screen Not Detected (Not Detect) Acetaminophen < 3 (<30) mcg/mL Ur Barbiturates Screen POSITIVE H (Not Detect) Ur Phencyclidine Scrn Not Detected (Not Detect) Ur Amphetamines Screen Not Detected (Not Detect) U Benzodiazepines Scrn Not Detected (Not Detect) Urine Cocaine Screen Not Detected (Not Detect) U Marijuana (THC) Screen POSITIVE H (Not Detect) Ethyl Alcohol < 10 mg/dL Critical Care Time Critical Care Time Critical Care Time: Yes Total Critical Care Time: 35 Attestation: I have personally provided critical care time. Time includes review of lab data, radiology results, discussion with consultants, and monitoring for potential decompensation. Intervention performed as documented. Discharge Plan Discharge Clinical Impression: Suicidal ideation Patient Disposition: Still a Patient Prescriptions: No Action prazosin 1 mg Capsule 4 mg PO BEDTIME 30 Days Qty: 120 0RF Protocol: Hold for SBP< HOLD for SBP < : 90 haloperidol 1 mg Tablet 2 mg PO DAILY PRN (Reason: agitation) 30 Days Qty: 60 0RF mirtazapine 30 mg Tablet 30 mg PO BEDTIME 30 Days Qty: 30 0RF hydroxyzine HCl 25 mg Tablet 25 mg PO DAILY PRN (Reason: Anxiety) 30 Days Qty: 30 0RF ibuprofen 600 mg Tablet 600 mg PO TID 30 Days Qty: 90 0RF Anbesol (benzocaine) Max Str 20 % Gel 1 appl mucous membrane QID PRN (Reason: toothache) 15 Days Qty: 50 0RF Protocol: Apply to: Apply to: tooth sertraline 50 mg Tablet 50 mg PO DAILY 30 Days Qty: 30 0RF quetiapine 50 mg Tablet 50 mg PO BEDTIME 30 Days Qty: 30 0RF Interventions: Mineral-Suicide Risk Severity Scale Last Done: 01/08/25 21:26 Print Language: Kinyarwanda
[2025-01-08 22:11] VITALS: BP 116/69; PULSE 88; RESP 16; O2SAT 97
--- NOTE | 2025-01-08 22:43 | PC.NURSE ---
per MD guy pt is medically cleared, provided with sandwich, julissa jessi, and jello. seen by care team at bedside. section [address] 1:1 sitter at bedside.
--- NOTE | 2025-01-08 23:26 | MHC.CARE ---
Patient will be IPLOC. Section 12a placed in chart for safety.
[2025-01-08 23:42] LABS: Influenza A PCR NEGATIVE (Negative); Influenza B PCR NEGATIVE (Negative); Resp Syncy Virus RNA Qual PCR NEGATIVE (Negative); SARS COV2 PCR INHOUSE NEGATIVE (Negative)
--- NOTE | 2025-01-09 00:22 | PC.NURSE ---
pt meds locked up in pharmacy. pt is prescribed mirtazapine, aspirin, acetaminophen, oxycodone, folic acid, and seroquel. requesting meds for bedtime, MD Dixon mendoza.
[2025-01-09 00:31] VITALS: BP 101/59; PULSE 96; RESP 17; TEMP 36.6; O2SAT 97
[2025-01-09] MEDS: Acetaminophen 325 MG TABLET 650 MG PO (00:41)
[2025-01-09] MEDS: QUEtiapine Fumarate 100 MG TABLET PO (00:41)
[2025-01-09] MEDS: Mirtazapine 15 MG TABLET PO ×2 (00:41→20:18)
--- NOTE | 2025-01-09 01:09 | PC.NURSE ---
pt medicated per mar with bedtime meds, given eyemask and earplugs to sleep as pt is in hallway. offers no current complaints, no apparent distress noted. 1:1 sitter at bedside. plan of care continues.
[2025-01-09 03:35] VITALS: BP 107/54; PULSE 76; RESP 16; O2SAT 98
[2025-01-09 08:04] VITALS: BP 110/64; PULSE 74; RESP 15; TEMP 36.9; O2SAT 96
--- NOTE | 2025-01-09 08:16 | ECG_ITS ---
Test Reason : MED CLEARANCE Blood Pressure : */* mmHG Vent. Rate : 89 BPM Atrial Rate : 89 BPM P-R Int : 124 ms QRS Dur : 82 ms QT Int : 362 ms P-R-T Axes : 51 51 39 degrees QTcB Int : 440 ms Normal sinus rhythm Normal ECG When compared with ECG of 08-Feb-2023 13:22, No significant change was found Referred By: Monse Metcalf Electronically Signed By: TEMITOPE CABRERA MD
--- NOTE | 2025-01-09 10:31 | PHA.MEDREC ---
Pharmacy Consult ? Medication Reconciliation Pharmacy has completed the medication reconciliation. Spoke to patient to confirm medication list. Patient had his bottles with him (now being stored in pharmacy's safe) and they were filled at [facility] pharmacy yesterday 01/08/25. He confirmed them and added that he also takes prazosin 4 mg at bedtime. Last dose of medications was last night.
[2025-01-09] MEDS: Folic Acid 1 MG TABLET PO (10:45)
[2025-01-09] MEDS: Acetaminophen 325 MG TABLET 975 MG PO ×2 (10:45→17:52)
[2025-01-09] MEDS: Aspirin Enteric Coated 81 MG TABLET.DR PO (10:46)
[2025-01-09] MEDS: QUEtiapine Fumarate 50 MG TABLET 150 MG PO ×2 (10:46→20:17)
[2025-01-09] MEDS: oxyCODONE HCl Immed Release 5 MG TABLET 10 MG PO ×2 (10:46→17:52)
--- NOTE | 2025-01-09 13:19 | PC.NURSE ---
Dr. Melgoza called this RN and is concerned about this pt.'s elevated WBC (19.4) and elevated platelet level (741). Cheri Leyv MD notified. Per Dr. Levy: Plan is for Dr. Melgoza to admit the patient to his service, and then get inpatient medical consult.
[2025-01-09 14:17] LABS: MANUAL DIFF FLAG NO
[2025-01-09 14:19] LABS: Basophils Absolute Auto 0.1 X10*3/uL (0.0-0.2); Basophils Percent Auto 0.7 % (0-2); Eosinophils Absolute Auto 0.1 X10*3/uL (0.0-0.4); Eosinophils Percent Auto 1.4 % (0-4); Hemoglobin 10.2 g/dl (14.0-18.0); Imm Gran Abs Auto 0.04 X10*3/uL (0.00-0.03); Imm Gran Pct Auto 0.5 % (0.0-0.4); Lymphocytes Absolute Auto 1.9 X10*3/uL (1.2-4.9); Lymphocytes Percent Auto 22.2 % (20-40); Mean Corpuscular Hemoglobin 33.7 pg (27.0-33.0); Monocytes Absolute Auto 0.7 X10*3/uL (0.1-1.2); Monocytes Percent Auto 7.5 % (2-11); Neutrophils Absolute Auto 5.9 x10*3/uL (2.0-8.3); Neutrophils Percent Auto 67.7 % (45-73); Platelet Count 674 X10*3/uL (160-400); Red Blood Count 3.03 X10*6/uL (4.60-5.80); Red Cell Distribution Width 14.9 % (11.0-16.0); White Blood Count 8.6 X10*3/uL (4.8-10.8)
[2025-01-09 14:40] LABS: Alanine Aminotransferase 144 U/L (0-40); Albumin Level 4.2 g/dL (3.5-5.0); Alkaline Phosphatase 260 U/L (39-117); Anion Gap 12 (12-20); Aspartate Amino Transferase 36 U/L (5-37); Bilirubin Direct 0.2 mg/dL (0.0-0.5); Bilirubin Total 0.7 mg/dL (0.0-1.0); Blood Urea Nitrogen 18 mg/dL (9-16); Calcium 9.4 mg/dL (8.4-10.2); Carbon Dioxide 27 mmol/L (22-29); Chloride 104 mmol/L (96-108); Estimated Glomerular Filt Rate > 60; Glucose Random 104 mg/dL (60-115); Lipase 20 U/L (8-78); Potassium 4.2 mmol/L (3.3-5.1); Sodium 139 mmol/L (135-145); Total Protein 7.8 g/dL (6.5-8.0)
[2025-01-09 17:22] VITALS: BP 133/66; PULSE 82; RESP 18; TEMP 36.5; O2SAT 100; BMI 23.8
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
[2025-01-09 20:00] VITALS: BP 109/56; PULSE 80; TEMP 36.9; O2SAT 96
[2025-01-09 20:20] VITALS: BP 109/56
[2025-01-09] MEDS: Prazosin HCL 1 MG CAPSULE 4 MG PO (20:20)
[2025-01-10] MEDS: oxyCODONE HCl Immed Release 5 MG TABLET 10 MG PO ×4 (03:26→23:14)
[2025-01-10 08:05] VITALS: BP 103/64; PULSE 66; RESP 18; TEMP 36.8; O2SAT 98
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
[2025-01-10 08:59] LABS: Estimated Average Glucose 85 mg/dL; Hemoglobin A1C 64.3995 umol/L; Hemoglobin A1c % 4.6 % (<6.0); Total Hemoglobin (HGBA1C) 2390.5614 umol/L
[2025-01-10 09:27] LABS: Cholesterol 204 mg/dL (<200); HDL Cholesterol 50 mg/dL (>40); LDL Cholesterol Calculated 136 mg/dL (<100); Triglycerides 94 mg/dL (<150)
[2025-01-10 09:28] LABS: Free T4 (Free Thyroxine) 0.98 ng/dL (0.71-1.85); Thyroid Stimulating Hormone 0.93 uIU/mL (0.32-4.0)
[2025-01-10 09:53] LABS: Folate 12.3 ng/mL (> or = 4.0); Vitamin B12 543 pg/mL (200-900)
[2025-01-10] MEDS: Folic Acid 1 MG TABLET PO (10:10)
[2025-01-10] MEDS: Aspirin Enteric Coated 81 MG TABLET.DR PO (10:10)
[2025-01-10] MEDS: QUEtiapine Fumarate 50 MG TABLET 150 MG PO ×2 (10:10→20:38)
[2025-01-10] MEDS: Acetaminophen 325 MG TABLET 975 MG PO ×3 (10:10→23:14)
[2025-01-10 10:31] LABS: HBS Num1 95.35 mIU/mL (0-7.99); HBc Num1 0.03 S/CO (0.00-0.79); HBsAGNum1 0.27 S/CO (0.00-0.99); Hepatitis B Core Antibody Nonreactive (Nonreactive); Hepatitis B Surface Antigen Negative (Negative); ~HepC Num1 0.05 S/CO (0.00-0.79); ~Hepatitis A Antibody IgM Nonreactive (Nonreactive); ~Hepatitis B Surface Antibody REACTIVE (Nonreactive); ~Hepatitis C Antibody Nonreactive (Nonreactive)
[2025-01-10 20:30] VITALS: BP 114/60; PULSE 86; RESP 16; TEMP 37.1; O2SAT 97
[2025-01-10] MEDS: Mirtazapine 15 MG TABLET PO (20:38)
[2025-01-10] MEDS: Prazosin HCL 1 MG CAPSULE 4 MG PO (20:38)
[2025-01-11] MEDS: oxyCODONE HCl Immed Release 5 MG TABLET 10 MG PO ×4 (05:15→23:55)
[2025-01-11 07:50] VITALS: BP 102/58; PULSE 69; RESP 12; TEMP 36.8; O2SAT 96
[2025-01-11] MEDS: Aspirin Enteric Coated 81 MG TABLET.DR PO (08:58)
[2025-01-11] MEDS: QUEtiapine Fumarate 50 MG TABLET 150 MG PO ×2 (08:58→20:21)
[2025-01-11] MEDS: Folic Acid 1 MG TABLET PO (08:58)
[2025-01-11] MEDS: Acetaminophen 325 MG TABLET 975 MG PO ×3 (10:18→23:55)
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
--- NOTE | 2025-01-11 16:09 | PC.NURSE ---
Pt seen by a provider who removed all brian in pts right hip and knee. Steri-strips applied to the hip incision site for precautions and prevent wound from dehiscence. All wound sites well approximated. Scant bleeding upon removal of brian. Pt tolerated procedure w/o difficulty. No s/sx of infection noted.
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
[2025-01-11 20:15] VITALS: BP 120/75; PULSE 82; RESP 16; TEMP 36.9; O2SAT 97
[2025-01-11] MEDS: Mirtazapine 30 MG TABLET PO (20:21)
[2025-01-11] MEDS: Prazosin HCL 1 MG CAPSULE 4 MG PO (20:21)
[2025-01-11] MEDS: traZODone HCL 50 MG TABLET PO (23:55)
[2025-01-12] MEDS: oxyCODONE HCl Immed Release 5 MG TABLET 10 MG PO ×3 (06:58→21:44)
[2025-01-12] MEDS: Acetaminophen 325 MG TABLET 975 MG PO ×3 (06:58→21:45)
[2025-01-12 08:00] VITALS: BP 97/53; PULSE 64; TEMP 36.6; O2SAT 96
[2025-01-12] MEDS: Folic Acid 1 MG TABLET PO (08:31)
[2025-01-12] MEDS: QUEtiapine Fumarate 50 MG TABLET 150 MG PO ×2 (08:31→21:44)
[2025-01-12] MEDS: Aspirin Enteric Coated 81 MG TABLET.DR PO (08:32)
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
[2025-01-12 20:54] VITALS: BP 115/60; PULSE 86; RESP 16; TEMP 36.9; O2SAT 97
[2025-01-12] MEDS: Prazosin HCL 1 MG CAPSULE 4 MG PO (21:44)
[2025-01-12] MEDS: traZODone HCL 50 MG TABLET PO ×2 (21:44→23:23)
[2025-01-12] MEDS: Mirtazapine 30 MG TABLET PO (21:44)
[2025-01-13] MEDS: oxyCODONE HCl Immed Release 5 MG TABLET 10 MG PO ×2 (03:55→10:04)
[2025-01-13 07:47] VITALS: BP 109/64; PULSE 85; RESP 18; TEMP 36.5; O2SAT 98
[2025-01-13] MEDS: Acetaminophen 325 MG TABLET 975 MG PO ×3 (08:20→20:16)
[2025-01-13] MEDS: QUEtiapine Fumarate 50 MG TABLET 150 MG PO ×2 (08:20→20:15)
[2025-01-13] MEDS: Folic Acid 1 MG TABLET PO (08:20)
[2025-01-13] MEDS: Aspirin Enteric Coated 81 MG TABLET.DR PO (08:20)
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
[2025-01-13] MEDS: oxyCODONE HCl Immed Release 5 MG TABLET PO ×2 (16:37→22:48)
[2025-01-13 19:43] VITALS: BP 116/63; PULSE 94; RESP 16; TEMP 37.1; O2SAT 97
[2025-01-13] MEDS: traZODone HCL 50 MG TABLET PO ×2 (20:15→22:48)
[2025-01-13] MEDS: Mirtazapine 30 MG TABLET PO (20:16)
[2025-01-13] MEDS: Prazosin HCL 1 MG CAPSULE 4 MG PO (20:16)
[2025-01-13] MEDS: Ibuprofen 600 MG TABLET PO (22:49)
[2025-01-14] MEDS: oxyCODONE HCl Immed Release 5 MG TABLET PO ×3 (04:57→21:00)
[2025-01-14 08:00] VITALS: BP 125/83; PULSE 75; RESP 16; TEMP 36.3; O2SAT 100
[2025-01-14] MEDS: QUEtiapine Fumarate 50 MG TABLET 150 MG PO ×2 (08:46→20:22)
[2025-01-14] MEDS: Aspirin Enteric Coated 81 MG TABLET.DR PO (08:46)
[2025-01-14] MEDS: Folic Acid 1 MG TABLET PO (08:46)
[2025-01-14] MEDS: Acetaminophen 325 MG TABLET 975 MG PO ×3 (08:47→20:24)
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
[2025-01-14 20:00] VITALS: BP 113/63; PULSE 94; RESP 16; TEMP 37.2; O2SAT 98
[2025-01-14] MEDS: Prazosin HCL 1 MG CAPSULE 4 MG PO (20:25)
[2025-01-14] MEDS: Mirtazapine 30 MG TABLET PO (20:26)
[2025-01-14] MEDS: Ibuprofen 600 MG TABLET PO (20:59)
[2025-01-14] MEDS: traZODone HCL 50 MG TABLET PO (23:03)
[2025-01-15] MEDS: Ibuprofen 600 MG TABLET PO ×3 (06:49→22:43)
[2025-01-15 07:20] VITALS: BP 116/71; PULSE 79; RESP 16; TEMP 36.5; O2SAT 97
[2025-01-15] MEDS: QUEtiapine Fumarate 50 MG TABLET 150 MG PO ×2 (08:22→20:29)
[2025-01-15] MEDS: oxyCODONE HCl Immed Release 5 MG TABLET PO ×2 (08:23→22:40)
[2025-01-15] MEDS: Folic Acid 1 MG TABLET PO (08:23)
[2025-01-15] MEDS: Aspirin Enteric Coated 81 MG TABLET.DR PO (08:23)
[2025-01-15] MEDS: Acetaminophen 325 MG TABLET 975 MG PO ×3 (08:24→20:28)
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
[2025-01-15 11:27] VITALS: BP 116/71; PULSE 79; O2SAT 97
[2025-01-15 19:36] VITALS: BP 114/59; PULSE 96; RESP 16; TEMP 36.9; O2SAT 98
[2025-01-15 20:20] VITALS: BP 114/70; PULSE 97
[2025-01-15] MEDS: Prazosin HCL 1 MG CAPSULE 4 MG PO (20:29)
[2025-01-15] MEDS: Mirtazapine 30 MG TABLET PO (20:30)
[2025-01-15] MEDS: traZODone HCL 50 MG TABLET PO ×2 (20:30→22:40)
[2025-01-16 07:30] VITALS: BP 119/78; PULSE 80; RESP 16; TEMP 36.6; O2SAT 99
[2025-01-16] MEDS: Aspirin Enteric Coated 81 MG TABLET.DR PO (08:13)
[2025-01-16] MEDS: QUEtiapine Fumarate 50 MG TABLET 150 MG PO (08:14)
[2025-01-16] MEDS: Acetaminophen 325 MG TABLET 975 MG PO (08:14)
[2025-01-16] MEDS: Folic Acid 1 MG TABLET PO (08:14)
[2025-01-16] MEDS: oxyCODONE HCl Immed Release 5 MG TABLET PO (08:20)
[2025-01-16] MEDS: Naloxone HCl Nasal TAKE HOME 4 MG SPRAY 8 MG NOSTRILALT (09:02)
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
== END 2025-01-16 11:00 | disposition home or self-care (01) | DRG 754 ==
LOC: HO.ED 01-09 11:37 → HO.PADLT16 01-09 15:49
PROVIDERS: Emergency Medicine; Admitting Provider Psychiatry & Neurology Psychiatry; Emergency Provider Emergency Medicine; Responsible Provider Registered Nurse; Visit Provider Psychiatry & Neurology Psychiatry
DX: F32.9 Major depressive disorder, single episode, unspecified (principal); F11.90 Opioid use, unspecified, uncomplicated; F43.12 Post-traumatic stress disorder, chronic; F12.90 Cannabis use, unspecified, uncomplicated; F17.210 Nicotine dependence, cigarettes, uncomplicated; F13.90 Sedative, hypnotic, or anxiolytic use, unspecified, uncomplicated; Z59.02 Unsheltered homelessness; Z71.6 Tobacco abuse counseling; Z91.51 Personal history of suicidal behavior; Z20.822 Contact with and (suspected) exposure to COVID-19; Z79.82 Long term (current) use of aspirin; Z79.899 Other long term (current) drug therapy
CPT/HCPCS: 0241U; 36415; 76705; 80048; 80053; 80061; 80076; 80143; 80179; 80307; 81003; 82607; 82746; 83036; 83690; 84439; 84443; 84484; 85025; 86704; 86706; 86709; 86803; 87340; 93005; 97162; 97530; 99285; S9485

== ENCOUNTER → 2025-01-09 08:16 | Outpatient (BNV) | payer MEDICAID, SELFPAY | PROVIDERS: Emergency Provider Emergency Medicine; Visit Provider Internal Medicine Cardiovascular Disease | DX: Z01.810 Encounter for preprocedural cardiovascular examination (principal) | CPT/HCPCS: 93010 ==

== ENCOUNTER → 2025-01-09 13:36 | Outpatient (BNV) | payer MEDICAID, SELFPAY | PROVIDERS: Admitting Provider Psychiatry & Neurology Psychiatry; Emergency Provider Emergency Medicine; Visit Provider Radiology Diagnostic Radiology | DX: K76.89 Other specified diseases of liver (principal) | CPT/HCPCS: 76705 ==

== ENCOUNTER → 2025-01-09 15:41 | Outpatient (BNV) | payer OTHER, SELFPAY | PROVIDERS: Admitting Provider Psychiatry & Neurology Psychiatry; Emergency Provider Emergency Medicine; Visit Provider Psychiatry & Neurology Psychiatry | DX: F11.90 Opioid use, unspecified, uncomplicated (principal); F12.90 Cannabis use, unspecified, uncomplicated; F43.12 Post-traumatic stress disorder, chronic; Z59.00 Homelessness unspecified; F13.90 Sedative, hypnotic, or anxiolytic use, unspecified, uncomplicated | CPT/HCPCS: 99233 ==

== ENCOUNTER 2025-01-18 08:00 | Inpatient (IN) | payer MEDICAID, OTHER, SELFPAY ==
--- NOTE | ~2025-01-18 | CT_ITS ---
CLINICAL HISTORY: blacked out, ?trauma CT head without contrast Comparison: None Findings: No intra-axial mass, midline shift, hydrocephalus, or acute hemorrhage. No significant atrophy-like change or white matter disease. There is no sinus or mastoid fluid. The orbits are within normal limits. There is no acute fracture. IMPRESSION: 1. No acute intracranial findings. This document has been electronically signed by: Charlie Watson MD on 01/18/2025 12:07:44
--- NOTE | ~2025-01-18 | CT_ITS ---
CLINICAL HISTORY: hemoptysis, epigastric pain CT abdomen and pelvis without and with contrast. GI bleed protocol utilized. Comparison: None Findings: The lung bases are clear. There is no evidence of contrast blush within the gastric lumen or bowel lumen. There is no pooling of contrast on delayed imaging to suggest active GI bleed by CT. The liver, spleen, gallbladder, adrenal glands and pancreas are unremarkable. Kidneys enhance symmetrically and are without obstructive uropathy. The bladder is partially distended. Normal appendix. Scattered diverticulosis. Scattered gas and fluid throughout nondistended small and large bowel. Mild engorgement of the vasa recta. No acute osseous abnormality. Impression: No evidence of active GI bleed by CT. Mild enteritis suggested. This document has been electronically signed by: Charlie Watson MD on 01/18/2025 12:11:39
--- NOTE | ~2025-01-18 | CT_ITS ---
CLINICAL HISTORY: blacked out, ?trauma CT cervical spine without contrast Comparison: None Findings: Normal vertebral body alignment. No significant degenerative change. No acute fractures or dislocations. No acute findings on limited view of the intracranial contents. Soft tissues of the neck are normal. Lung apices are clear. IMPRESSION: No acute findings. This document has been electronically signed by: Charlie Watson MD on 01/18/2025 12:04:57
--- NOTE | ~2025-01-18 | US_ITS ---
CLINICAL HISTORY: epigastric pain US abdomen limited Comparison: CT/SR - CT GI BLEED ABD PEL WO/W IVCON - 01/18/25 10:40 EDT US/SR - US ABDOMEN LIMITED - 01/09/25 15:13 EST Findings: Calculi within the gallbladder lumen. No gallbladder wall thickening. Common bile duct is normal at 3 mm. IMPRESSION: 1. Cholelithiasis. No evidence of acute cholecystitis. This document has been electronically signed by: Yuri Alvarado MD on 01/18/2025 13:28:43
[2025-01-18 08:10] VITALS: BP 104/75; PULSE 111; RESP 18; TEMP 37.1; O2SAT 98; BMI 23.8
--- NOTE | 2025-01-18 08:48 | PC.NURSE ---
Pt comes from home for recent increase in depression d/t significant life stressors- recent SI attempt approx x2 weeks ago, pt states feeling more depressed/increasing SI thoughts. 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 Denies visual/auditory hallucinations. States last ETOH use was around 0300am 01/19/24- denies hx of ETOH /withdrawal seizures. CIWA 0 at this time, denies tremors/nausea/vomiting. Respirations even and unlabored, no increased wob/sob noted. Placed in [facility] 7, resting quietly, watching tv.
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
[2025-01-18 09:06] LABS: Appearance Urine Clear; Color Urine Dark Yellow; Glucose Urine UA Negative (Negative); Leukocyte Esterase Urine Negative (Negative); Nitrite Urine Negative (Negative); PH 5.5 (5.0-9.0); Specific Gravity - Urine >= 1.030 (1.005-1.025); UMIC TRIGGER UACC YES; Urine Blood Negative (Negative); Urine Ketones Trace mg/dL (Negative); Urine Protein 30 (1+) mg/dL (Neg-Trace)
[2025-01-18 09:08] LABS: Bacteria Urine None Seen (None Seen); RBC Urine 0-2 /HPF (0-2); Squamous Epithelial Cell Urine 0-2 /HPF (0-2); WBC Urine 0-5 /HPF (0-5)
[2025-01-18 09:15] LABS: Amphetamine Screen Urine Not Detected (Not Detect); Barbiturates, Urine POSITIVE (Not Detect); Benzodiazepines Screen Urine Not Detected (Not Detect); Buprenorphine Scr Not Detected (Not Detect); Cannabinoid Screen Urine POSITIVE (Not Detect); Cocaine Screen Urine POSITIVE (Not Detect); Fentanyl, urine Not Detected (Not Detect); Methadone Screen, Urine Not Detected (Not Detect); Opiate Screen Urine Not Detected (Not Detect); Oxycodone Screen Urine Positive (Not Detect); Phencyclidine Screen Urine Not Detected (Not Detect)
[2025-01-18 09:33] LABS: MANUAL DIFF FLAG NO
[2025-01-18 09:35] LABS: Basophils Absolute Auto 0.1 X10*3/uL (0.0-0.2); Basophils Percent Auto 0.4 % (0-2); Eosinophils Percent Auto 0.2 % (0-4); Hemoglobin 11.7 g/dl (14.0-18.0); Imm Gran Abs Auto 0.05 X10*3/uL (0.00-0.03); Imm Gran Pct Auto 0.4 % (0.0-0.4); Lymphocytes Percent Auto 14.1 % (20-40); Mean Corpuscular HGB Conc 33.4 g/dl (31.0-36.0); Mean Corpuscular Volume 95.6 fL (80.0-98.0); Mean Platelet Volume 9.4 fL (9.4-12.4); Monocytes Absolute Auto 1.3 X10*3/uL (0.1-1.2); Monocytes Percent Auto 9.6 % (2-11); Neutrophils Absolute Auto 10.5 x10*3/uL (2.0-8.3); Neutrophils Percent Auto 75.3 % (45-73); Platelet Count 436 X10*3/uL (160-400); Red Blood Count 3.66 X10*6/uL (4.60-5.80); Red Cell Distribution Width 14.7 % (11.0-16.0); White Blood Count 13.9 X10*3/uL (4.8-10.8)
[2025-01-18 09:48] LABS: Anion Gap 16 (12-20)
[2025-01-18 09:52] LABS: Alanine Aminotransferase 111 U/L (0-40); Albumin Level 4.4 g/dL (3.5-5.0); Aspartate Amino Transferase 38 U/L (5-37); Bilirubin Total 1.2 mg/dL (0.0-1.0); Blood Urea Nitrogen 20 mg/dL (9-16); Calcium 10.1 mg/dL (8.4-10.2); Carbon Dioxide 28 mmol/L (22-29); Chloride 99 mmol/L (96-108); Creatinine Clr Calc Pharmacy 143.8; Estimated Glomerular Filt Rate > 60; Ethanol < 10 mg/dL; Glucose Random 111 mg/dL (60-115); Potassium 3.5 mmol/L (3.3-5.1); Sodium 139 mmol/L (135-145); Total Protein 7.8 g/dL (6.5-8.0)
[2025-01-18 09:59] LABS: Acetaminophen LAB < 3 mcg/mL (<30); Alkaline Phosphatase 209 U/L (39-117); Salicylate < 5.0 mg/dL (15-30)
[2025-01-18] MEDS: Lactated Ringers 500 ML 1000 ML IV (10:57)
[2025-01-18] MEDS: Ondansetron ODT 4 MG TAB.RAPDIS TRANSLINGU (10:57)
[2025-01-18] MEDS: Pantoprazole Sodium 40 MG/10 ML VIAL 80 MG IVPUSH (10:57)
[2025-01-18 12:46] VITALS: BP 111/76; PULSE 96; RESP 18; TEMP 37.1; O2SAT 98
--- NOTE | 2025-01-18 15:20 | PHA.MEDREC ---
Pharmacy Consult ? Medication Reconciliation Pharmacy has reviewed the medication reconciliation done by nursing. Also used discharge packet from 01/16/25 to confirm.
--- NOTE | 2025-01-18 17:44 | MHC.CARE ---
Patient will be dual IPLOC. Section 12a in chart for safety.
--- NOTE | 2025-01-18 19:19 | PC.NURSE ---
patient appears to remain at rest presently respirations are even and unlabored patient appears in no distress.
[2025-01-18 19:30] VITALS: BP 108/56; PULSE 90; RESP 17; TEMP 36.9; O2SAT 99
[2025-01-18] MEDS: Acetaminophen 325 MG TABLET 975 MG PO (20:37)
[2025-01-18] MEDS: Mirtazapine 30 MG TABLET PO (20:37)
[2025-01-18 20:38] VITALS: BP 108/56
[2025-01-18] MEDS: Prazosin HCL 1 MG CAPSULE 4 MG PO (20:38)
[2025-01-19 05:08] VITALS: BP 129/82; PULSE 86; RESP 16; TEMP 36.6; O2SAT 97
[2025-01-19] MEDS: Folic Acid 1 MG TABLET PO (09:33)
[2025-01-19 14:31] VITALS: BP 111/62; PULSE 88; RESP 14; TEMP 36.6; O2SAT 98
--- NOTE | 2025-01-19 15:31 | PC.NURSE ---
Bedside report gv to EMS for transfer to [facility]; pt medicated for anxiety p/t leaving; all belongings gv to EMS to accompany pt; pt cooperative at this time with being transferred
[2025-01-19] MEDS: Acetaminophen 325 MG TABLET 975 MG PO (17:17)
[2025-01-19 20:36] VITALS: BP 132/88; PULSE 91; RESP 16; TEMP 36.6; O2SAT 99
[2025-01-19 20:39] VITALS: BP 132/88
[2025-01-19] MEDS: Mirtazapine 30 MG TABLET PO (20:39)
[2025-01-19] MEDS: Prazosin HCL 1 MG CAPSULE 4 MG PO (20:39)
--- NOTE | 2025-01-19 23:46 | PC.NURSE ---
Took over care from JOLIE Vargas, pt sleeping at this time.
--- NOTE | 2025-01-20 | ECG_ITS ---
Test Reason : r/o prolonged qt Blood Pressure : */* mmHG Vent. Rate : 77 BPM Atrial Rate : 77 BPM P-R Int : 128 ms QRS Dur : 84 ms QT Int : 370 ms P-R-T Axes : 68 66 53 degrees QTcB Int : 418 ms Normal sinus rhythm Normal ECG When compared with ECG of 09-Jan-2025 09:16, No significant change was found Referred By: Harsha Levy Electronically Signed By: Braydon Roldan
[2025-01-20 06:33] VITALS: BP 120/81; PULSE 82; RESP 16; TEMP 36.6; O2SAT 97
--- NOTE | 2025-01-20 08:20 | PC.NURSE ---
Assumed care of patient at 0645, patient appears to be in no apparent distress this am, laying in bed, respirations even and unlabored. Continue plan of care for IPLOC
[2025-01-20 08:22] LABS: HBS Num1 95.13 mIU/mL (0-7.99); HBc Num1 0.04 S/CO (0.00-0.79); HBsAGNum1 0.23 S/CO (0.00-0.99); Hepatitis A Antibody IgM 0.16 Index (0-0.79); Hepatitis B Core Antibody Nonreactive (Nonreactive); Hepatitis B Surface Antigen Negative (Negative); ~HepC Num1 0.05 S/CO (0.00-0.79); ~Hepatitis A Antibody IgM Nonreactive (Nonreactive); ~Hepatitis B Surface Antibody REACTIVE (Nonreactive); ~Hepatitis C Antibody Nonreactive (Nonreactive)
[2025-01-20] MEDS: Acetaminophen 325 MG TABLET 975 MG PO (12:13)
--- NOTE | 2025-01-20 12:30 | PC.NURSE ---
Late entry: Tylenol administered for pain at 1213 on 01/20. patient rating pain 8/10 in the right leg. parameters for administration were for pain level of 1-3. Provider was made aware that patient's pain level was above parameters for administration, continued plan of care for tylenol admin
[2025-01-20 18:38] VITALS: BP 142/90; PULSE 98; RESP 18; TEMP 36.7; O2SAT 98
[2025-01-20 18:43] VITALS: BMI 24.0
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
[2025-01-20] MEDS: Ibuprofen 600 MG TABLET PO (20:15)
[2025-01-20 20:52] LABS: Alanine Aminotransferase 90 U/L (0-40); Albumin Level 4.5 g/dL (3.5-5.0); Alkaline Phosphatase 207 U/L (39-117); Anion Gap 15 (12-20); Aspartate Amino Transferase 24 U/L (5-37); Bilirubin Total 0.4 mg/dL (0.0-1.0); Blood Urea Nitrogen 18 mg/dL (9-16); Calcium 9.5 mg/dL (8.4-10.2); Carbon Dioxide 28 mmol/L (22-29); Chloride 104 mmol/L (96-108); Creatinine Clr Calc Pharmacy 117.1; Estimated Glomerular Filt Rate > 60; Glucose Fasting 77 mg/dL (60-99); Potassium 4.7 mmol/L (3.3-5.1); Sodium 142 mmol/L (135-145); Total Protein 7.9 g/dL (6.5-8.0)
[2025-01-20] MEDS: Mirtazapine 30 MG TABLET PO (21:55)
[2025-01-20] MEDS: traZODone HCL 50 MG TABLET PO (21:55)
[2025-01-20] MEDS: QUEtiapine Fumarate 50 MG TABLET 150 MG PO (21:55)
[2025-01-20] MEDS: Prazosin HCL 1 MG CAPSULE 4 MG PO (21:55)
[2025-01-20] MEDS: LORazepam 1 MG TABLET PO (21:56)
[2025-01-21 08:00] VITALS: BP 95/44; PULSE 69; RESP 18; TEMP 36.5; O2SAT 96
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
[2025-01-21] MEDS: Folic Acid 1 MG TABLET PO (09:28)
[2025-01-21] MEDS: Ibuprofen 600 MG TABLET PO ×2 (09:28→17:52)
[2025-01-21] MEDS: Aspirin Enteric Coated 81 MG TABLET.DR PO (09:29)
[2025-01-21] MEDS: QUEtiapine Fumarate 50 MG TABLET 150 MG PO ×2 (09:29→21:45)
[2025-01-21] MEDS: OLANZapine 5 MG TABLET PO ×2 (11:05→17:55)
[2025-01-21] MEDS: Acetaminophen 325 MG TABLET 650 MG PO ×2 (11:06→21:44)
--- NOTE | 2025-01-21 15:58 | MHC.RECOVRN ---
AUDIT-C Brief Intervention Pt had positive screen for unhealthy alcohol use on admission, subsequently met with t/w to discuss alcohol use and recovery supports/options. This literary writer met with patient to discuss current alcohol use and concerns related to increased risk of alcohol related problems.? Pt reports drinking a lot for a while Discussed how alcohol use has impacted health, including negative impact on ability to retain stable housing Withdrawal History: none reported Treatment History: None disclosed to t/w Supports:?minimal Discussed risk reduction strategies including drinking below the recommended limit. Provided pt with written resources including information on inpatient and outpatient treatment, [facility], harm reduction, and recovery coaching. Pt plans to seek Recovery coaching-referral sent. Pt also wishes to start [facility]. Choices left with pt. and he requests a F/U visit tomorrow to further discuss. Pt provided with t/w contact information if questions or concerns arise. Denies other questions or concerns at this time.
[2025-01-21 20:00] VITALS: BP 135/81; PULSE 97; TEMP 36.9; O2SAT 98
[2025-01-21] MEDS: cloNIDine HCL 0.1 MG TABLET PO (21:44)
[2025-01-21] MEDS: Mirtazapine 30 MG TABLET PO (21:44)
[2025-01-21] MEDS: traZODone HCL 50 MG TABLET PO (21:45)
[2025-01-22] VITALS: BP 127/80; PULSE 88; RESP 16; O2SAT 96
[2025-01-22 07:55] VITALS: BP 94/51; PULSE 63; RESP 16; TEMP 36.4; O2SAT 98
[2025-01-22] MEDS: QUEtiapine Fumarate 50 MG TABLET 150 MG PO ×2 (08:21→22:14)
[2025-01-22] MEDS: Folic Acid 1 MG TABLET PO (08:21)
--- NOTE | 2025-01-22 11:42 | MHC.RECOVRN ---
Met with pt in 507-2 to follow up regarding resources provided yesterday. Pt laying in bed, eyes closed, wakes to voice. Discussed recovery resources and supports. Pt feels as though he needs more support and is looking forward to having a addictions recovery specialist. Educated pt regarding peer recovery support centers, pt plans to look into [facility]. Pt declines [facility], denies other questions or concerns for t/w.
[2025-01-22] MEDS: Ibuprofen 600 MG TABLET PO (12:15)
[2025-01-22] MEDS: hydrOXYzine HCL 25 MG TABLET PO ×2 (12:17→22:15)
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
[2025-01-22] MEDS: Venlafaxine HCl ER 37.5 MG CAP.ER.24H PO (18:28)
[2025-01-22 20:00] VITALS: BP 129/73; PULSE 94; TEMP 36.1; O2SAT 99
[2025-01-22] MEDS: traZODone HCL 50 MG TABLET PO (22:14)
[2025-01-22] MEDS: cloNIDine HCL 0.1 MG TABLET PO (22:14)
[2025-01-22] MEDS: Acetaminophen 325 MG TABLET 650 MG PO (22:15)
[2025-01-23] MEDS: QUEtiapine Fumarate 50 MG TABLET 150 MG PO ×2 (08:35→22:37)
[2025-01-23] MEDS: Venlafaxine HCl ER 37.5 MG CAP.ER.24H PO (08:35)
[2025-01-23] MEDS: Ibuprofen 600 MG TABLET PO ×2 (08:36→19:08)
[2025-01-23] MEDS: cloNIDine HCL 0.1 MG TABLET PO ×3 (08:36→22:36)
[2025-01-23] MEDS: Folic Acid 1 MG TABLET PO (08:36)
[2025-01-23 08:44] VITALS: BP 120/68; PULSE 66; RESP 16; TEMP 36.4; O2SAT 97
[2025-01-23] MEDS: Acetaminophen 325 MG TABLET 650 MG PO ×2 (13:26→22:37)
[2025-01-23 19:09] VITALS: BP 109/59
[2025-01-23 19:46] VITALS: BP 109/59; PULSE 85; TEMP 36.7; O2SAT 97
[2025-01-23 22:36] VITALS: BP 100/61
[2025-01-23] MEDS: hydrOXYzine HCL 25 MG TABLET PO (22:37)
[2025-01-23] MEDS: traZODone HCL 50 MG TABLET PO (22:37)
[2025-01-23] MEDS: traZODone HCL 100 MG TABLET PO (22:38)
[2025-01-24 08:10] VITALS: BP 109/59; PULSE 60; RESP 16; TEMP 36.6; O2SAT 99
[2025-01-24] MEDS: Folic Acid 1 MG TABLET PO (08:26)
[2025-01-24] MEDS: Venlafaxine HCl ER 75 MG CAP.ER.24H PO (08:26)
[2025-01-24] MEDS: QUEtiapine Fumarate 50 MG TABLET 150 MG PO ×2 (08:26→22:37)
[2025-01-24 08:28] LABS: Estimated Average Glucose 77 mg/dL; Hemoglobin A1c % 4.3 % (<6.0)
[2025-01-24 08:35] LABS: Alanine Aminotransferase 36 U/L (0-40); Albumin Level 4.2 g/dL (3.5-5.0); Alkaline Phosphatase 173 U/L (39-117); Aspartate Amino Transferase 13 U/L (5-37); Bilirubin Direct 0.1 mg/dL (0.0-0.5); Bilirubin Total 0.4 mg/dL (0.0-1.0); Cholesterol 212 mg/dL (<200); HDL Cholesterol 49 mg/dL (>40); LDL Cholesterol Calculated 137 mg/dL (<100); Total Protein 7.4 g/dL (6.5-8.0); Triglycerides 131 mg/dL (<150)
[2025-01-24 08:54] LABS: TSH reflex Free T4 0.65 uIU/mL (0.32-4.0)
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
[2025-01-24 09:26] VITALS: BP 105/60
[2025-01-24] MEDS: Ibuprofen 600 MG TABLET PO (09:26)
[2025-01-24] MEDS: cloNIDine HCL 0.1 MG TABLET PO ×2 (09:26→22:36)
[2025-01-24] MEDS: Acetaminophen 325 MG TABLET 650 MG PO ×2 (13:06→22:38)
[2025-01-24] MEDS: hydrOXYzine HCL 25 MG TABLET PO (14:35)
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
[2025-01-24 20:00] VITALS: BP 138/81; PULSE 110; RESP 16; TEMP 36.9; O2SAT 98
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
[2025-01-24 22:36] VITALS: BP 133/78
[2025-01-24] MEDS: traZODone HCL 100 MG TABLET PO (22:36)
[2025-01-24] MEDS: OLANZapine 5 MG TABLET PO (22:39)
[2025-01-25 08:12] VITALS: BP 109/62; PULSE 74; RESP 16; TEMP 36.5; O2SAT 99
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
[2025-01-25] MEDS: Ibuprofen 600 MG TABLET PO ×2 (09:26→22:29)
[2025-01-25] MEDS: cloNIDine HCL 0.1 MG TABLET PO ×2 (09:27→22:23)
[2025-01-25] MEDS: Venlafaxine HCl ER 37.5 MG CAP.ER.24H 112.5 MG PO (09:27)
[2025-01-25] MEDS: Folic Acid 1 MG TABLET PO (09:27)
[2025-01-25] MEDS: QUEtiapine Fumarate 50 MG TABLET 150 MG PO ×2 (09:27→22:24)
[2025-01-25] MEDS: Acetaminophen 325 MG TABLET 650 MG PO (18:22)
[2025-01-25] MEDS: OLANZapine 5 MG TABLET PO (18:22)
[2025-01-25 20:00] VITALS: BP 121/77; PULSE 100; RESP 18; TEMP 37.2; O2SAT 98
[2025-01-25 22:23] VITALS: BP 120/80
[2025-01-25] MEDS: traZODone HCL 100 MG TABLET PO (22:23)
[2025-01-25] MEDS: hydrOXYzine HCL 50 MG TABLET PO (22:26)
[2025-01-26] MEDS: hydrOXYzine HCL 50 MG TABLET PO (06:21)
[2025-01-26 08:05] VITALS: BP 110/59; PULSE 56; RESP 18; TEMP 36.6; O2SAT 98
[2025-01-26] MEDS: QUEtiapine Fumarate 50 MG TABLET 150 MG PO ×2 (08:41→22:19)
[2025-01-26] MEDS: Venlafaxine HCl ER 37.5 MG CAP.ER.24H 112.5 MG PO (08:41)
[2025-01-26] MEDS: Folic Acid 1 MG TABLET PO (08:41)
[2025-01-26] MEDS: cloNIDine HCL 0.1 MG TABLET PO ×2 (08:41→22:20)
[2025-01-26] MEDS: Ibuprofen 600 MG TABLET PO ×2 (08:43→22:29)
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
[2025-01-26 19:40] VITALS: BP 120/69; PULSE 97; TEMP 36.6; O2SAT 98
[2025-01-26 22:20] VITALS: BP 120/69
[2025-01-26] MEDS: traZODone HCL 100 MG TABLET PO (22:20)
[2025-01-26] MEDS: OLANZapine 5 MG TABLET PO (22:29)
[2025-01-26] MEDS: traZODone HCL 50 MG TABLET PO (22:29)
[2025-01-27 08:12] VITALS: BP 91/59; PULSE 70; RESP 16; TEMP 36.6; O2SAT 98
[2025-01-27 08:58] VITALS: BP 113/62
[2025-01-27] MEDS: Ibuprofen 600 MG TABLET PO ×2 (09:27→22:36)
[2025-01-27] MEDS: QUEtiapine Fumarate 50 MG TABLET 150 MG PO ×2 (09:28→22:36)
[2025-01-27] MEDS: Folic Acid 1 MG TABLET PO (09:28)
[2025-01-27] MEDS: cloNIDine HCL 0.1 MG TABLET PO ×2 (09:28→22:37)
[2025-01-27] MEDS: Venlafaxine HCl ER 150 MG CAP.ER.24H PO (09:28)
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
[2025-01-27] MEDS: hydrOXYzine HCL 50 MG TABLET PO ×2 (11:43→21:22)
[2025-01-27 20:00] VITALS: BP 123/71; PULSE 86; TEMP 37.1; O2SAT 97
[2025-01-27 22:37] VITALS: BP 123/71
[2025-01-27] MEDS: traZODone HCL 50 MG TABLET 150 MG PO (22:37)
[2025-01-27] MEDS: OLANZapine 5 MG TABLET PO (22:37)
[2025-01-28 05:10] VITALS: BP 101/65
[2025-01-28] MEDS: cloNIDine HCL 0.1 MG TABLET PO ×3 (05:10→22:36)
[2025-01-28 08:21] VITALS: BP 88/50; PULSE 56; TEMP 36.8; O2SAT 98
[2025-01-28 08:32] VITALS: BP 117/67; PULSE 80
[2025-01-28] MEDS: Venlafaxine HCl ER 150 MG CAP.ER.24H PO (08:54)
[2025-01-28] MEDS: Ibuprofen 600 MG TABLET PO ×2 (08:54→22:39)
[2025-01-28] MEDS: QUEtiapine Fumarate 50 MG TABLET 150 MG PO ×2 (08:55→22:34)
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
[2025-01-28] MEDS: OLANZapine 5 MG TABLET PO ×2 (13:11→22:37)
[2025-01-28 20:00] VITALS: BP 123/69; PULSE 94; RESP 16; TEMP 36.7; O2SAT 97
[2025-01-28] MEDS: traZODone HCL 50 MG TABLET 150 MG PO (22:30)
[2025-01-28 22:36] VITALS: BP 123/69
[2025-01-28] MEDS: hydrOXYzine HCL 50 MG TABLET PO (22:36)
[2025-01-29 07:58] VITALS: BP 115/53; PULSE 63; TEMP 36.6; O2SAT 97
[2025-01-29] MEDS: QUEtiapine Fumarate 50 MG TABLET 150 MG PO ×2 (08:03→22:58)
[2025-01-29] MEDS: cloNIDine HCL 0.1 MG TABLET PO ×3 (08:04→22:59)
[2025-01-29] MEDS: Venlafaxine HCl ER 150 MG CAP.ER.24H PO (08:04)
[2025-01-29] MEDS: Ibuprofen 600 MG TABLET PO ×2 (08:07→22:59)
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
[2025-01-29 14:31] VITALS: BP 129/69
[2025-01-29 19:56] VITALS: BP 133/83; PULSE 93; RESP 16; TEMP 36.4; O2SAT 93
[2025-01-29] MEDS: Acetaminophen 325 MG TABLET 650 MG PO (20:00)
[2025-01-29] MEDS: traZODone HCL 50 MG TABLET 150 MG PO (22:58)
[2025-01-29 22:59] VITALS: BP 124/67
[2025-01-29] MEDS: OLANZapine 5 MG TABLET PO (23:02)
[2025-01-30 08:00] VITALS: BP 112/55; PULSE 68; RESP 18; TEMP 36.6; O2SAT 99
[2025-01-30] MEDS: Acetaminophen 325 MG TABLET 650 MG PO (08:22)
[2025-01-30] MEDS: QUEtiapine Fumarate 50 MG TABLET 150 MG PO (08:53)
[2025-01-30 08:54] VITALS: BP 108/72
[2025-01-30] MEDS: Venlafaxine HCl ER 150 MG CAP.ER.24H PO (08:54)
[2025-01-30] MEDS: cloNIDine HCL 0.1 MG TABLET PO (08:54)
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
[2025-01-30] MEDS: Naloxone HCl Nasal TAKE HOME 4 MG SPRAY 8 MG NOSTRILALT (12:27)
[2025-01-30] MEDS: hydrOXYzine HCL 50 MG TABLET PO (12:27)
== END 2025-01-30 14:45 | disposition home or self-care (01) | DRG 751 ==
LOC: HO.ED 19:38 → HO.PM5 01-20 17:45
PROVIDERS: Physician Assistant Medical; Admitting Provider Psychiatry & Neurology Psychiatry; Emergency Provider Emergency Medicine; Visit Provider Psychiatry & Neurology Psychiatry
DX: F33.2 Major depressive disorder, recurrent severe without psychotic features (principal); R45.851 Suicidal ideations; F14.10 Cocaine abuse, uncomplicated; F10.90 Alcohol use, unspecified, uncomplicated; F17.210 Nicotine dependence, cigarettes, uncomplicated; F43.12 Post-traumatic stress disorder, chronic; Z71.6 Tobacco abuse counseling; Z91.51 Personal history of suicidal behavior; Z79.899 Other long term (current) drug therapy
CPT/HCPCS: 36415; 70450; 72125; 74178; 76705; 80053; 80061; 80076; 80143; 80179; 80307; 81001; 83036; 84443; 85025; 86704; 86706; 86709; 86803; 87340; 93005; 99285; J2470; J7120; S9485

== ENCOUNTER → 2025-01-18 10:24 | Outpatient (BNV) | payer MEDICAID, SELFPAY | PROVIDERS: Emergency Provider Emergency Medicine; Visit Provider Radiology Vascular & Interventional Radiology | DX: R10.13 Epigastric pain (principal); R04.2 Hemoptysis; R55 Syncope and collapse; K80.20 Calculus of gallbladder without cholecystitis without obstruction | CPT/HCPCS: 70450; 72125; 74178; 76705 ==

== ENCOUNTER → 2025-01-20 08:16 | Outpatient (BNV) | payer MEDICAID, SELFPAY | PROVIDERS: Admitting Provider Psychiatry & Neurology Psychiatry; Emergency Provider Emergency Medicine; Visit Provider Internal Medicine Cardiovascular Disease | DX: Z13.6 Encounter for screening for cardiovascular disorders (principal) | CPT/HCPCS: 93010 ==

== ENCOUNTER → 2025-01-20 16:16 | Outpatient (BNV) | payer OTHER, SELFPAY | PROVIDERS: Admitting Provider Psychiatry & Neurology Psychiatry; Emergency Provider Emergency Medicine; Visit Provider Psychiatry & Neurology Psychiatry | DX: F33.2 Major depressive disorder, recurrent severe without psychotic features (principal); F14.10 Cocaine abuse, uncomplicated; F10.90 Alcohol use, unspecified, uncomplicated; F43.12 Post-traumatic stress disorder, chronic | CPT/HCPCS: 99232 ==